=== PATIENT | female | born 1940 | race Caucasian/White ===

== ENCOUNTER 2024-03-10 01:45 | Emergency (ER) | payer MEDICARE, OTHER, SELFPAY ==
[2024-03-10] VITALS (11 sets, daily range): BP systolic 86–110; BP diastolic 46–71; BMI 24.5
[2024-03-10 02:57] LABS: % Basophils 0.3 % (0-2); % Eosinophils 0.6 % (0-6); % Immature Granulocytes 0.3 % (0-0.5); % Lymphocytes 18.1 % (20.5-51.1); % Neutrophils 73.7 % (42.2-75.2); Absolute Lymphocytes 1.3 10^3/uL (1.2-3.4); Absolute Monocytes 0.5 10^3/uL (0.1-0.6); Absolute Neutrophils 5.3 10^3/uL (1.4-6.5); Hematocrit 32.5 % (37.0-47.0); Hemoglobin 10.7 g/dL (12.0-16.0); Mean Corp Hgb Conc. 32.9 g/dL (33.0-37.0); Mean Corpuscular Volume 88.1 fL (81.0-99.0); Mean Platelet Volume 11.9 fL (7.4-10.4); Nucleated Red Blood Cells % 0 %; Platelet Count 124 10^3/uL (130-400); Red Blood Cell Count 3.69 10^6/uL (4.20-5.40); Red Cell Dist. Width 15.8 % (11.5-14.5); White Blood Cell Count 7.2 10^3/uL (4.8-10.8)
[2024-03-10 03:04] LABS: Urine Albumin Negative (Neg - Trace); Urine Bilirubin 1+ (Negative); Urine Character Slightly Cloudy (Clear); Urine Color Yellow; Urine Glucose Negative (Negative); Urine Ketone Trace (Negative); Urine Leukocyte Trace (Negative); Urine Nitrite Positive (Negative); Urine Occult Blood Trace (Negative); Urine Specific Gravity 1.015 (<1.030); Urine Urobilinogen 2+ (Neg - 1+)
[2024-03-10 03:15] LABS: ALT (SGPT) < 10 U/L (0-35); AST (SGOT) 16 U/L (14-36); Albumin 3.1 g/dl (3.5-5.0); Alkaline Phosphatase 93 U/L (38-126); Blood Urea Nitrogen 18 mg/dl (7-17); Calcium 8.9 mg/dl (8.4-10.2); Carbon Dioxide 26 mmol/L (22-30); Chloride 104 mmol/L (98-107); Estimated Creatinine Clearance 42 ml/min; Glucose 77 mg/dl (70-99); Potassium 3.5 mmol/L (3.5-5.1); Sodium 138 mmol/L (135-145); Total Bilirubin 0.7 mg/dl (0.2-1.3); eGFR > 60.00
[2024-03-10 03:17] LABS: Urine Red Blood Cell 0-2 /HPF (0-2); Urine Squamous Cell 0-2 /LPF (Few)
[2024-03-10 03:18] LABS: Urine Bacteria Many (Negative)
--- NOTE | 2024-03-10 04:02 | ED.GENMED ---
History of Present Illness
<CRISTIANO Mixon - Last Filed: 03/10/24 04:39>
General
Chief Complaint: Weakness
Source: patient, records and spouse
Time Seen by Provider: 03/10/24 03:30
Travel History
Have you had any contact with someone who has COVID-19?: No
Do you have any symptoms of coronavirus? Fever > 100 degrees, chills, cough, shortness of breath, sore throat, loss of taste or smell, muscle aches, or headache?: No
History of Present Illness
History of Present Illness:
83 year old female with hx of obesity and DM2 BIBA after pt fell on the floor from the cough and pt was found to be hypotensive just prior to arrival. Initially, EMS responded to a lift assist because pt fell from the couch. When they arrive, they
found pt on the floor and pt was too weak to stand. Denies head injury or LOC. BP on scene was 80/50. Pt refused to be transported however, EMS convinced pt to come to the ER. Pt complains of fatigue that began when she fell from the couch. She
reports she has been feeling fine prior. She does admit to two other falls earlier today. States she slipped and fell. Additionally, pt states she has not had a BM in 30 days. States she has been trying Miralax with no BM. She has associated nausea
and vomiting and occasional chills. She has been having intermittent vomiting. Denies hematemesis, abdominal pain, fevers, dysuria, hematuria, chest pain, SOB. is present.
Past History
<CRISTIANO Mixon - Last Filed: 03/10/24 04:39>
Past History
ED Past Medical History: NIDDM and Other (Chronic back pain)
ED Past Surgical History: Cholecystectomy and Gynecological ([facility] )
Social History
Tobacco: Non-smoker
Alcohol: None
Personal:
Living: with family
Review of Systems
<CRISTIANO Mixon - Last Filed: 03/10/24 04:39>
Review of Systems
Allergies reviewed?: Yes
All Other Systems: ROS reviewed and negative except as documented in HPI and ROS
Constitutional: Reports fatigue
EENT: Reports no symptoms
Respiratory: Reports no symptoms
Cardiac: Reports no symptoms
ABD/GI: Reports nausea, vomiting and constipated
: Reports no symptoms
Musculoskeletal: Reports no symptoms
Skin: Reports no symptoms
Neurological: Reports no symptoms
Endocrine: Reports no symptoms
Hematologic/Lymphatic: Reports no symptoms
Psychiatric: Reports no symptoms
Phy Exam
<CRISTIANO Mixon - Last Filed: 03/10/24 04:39>
General Physical Exam
General Presentation: other (appears toxic, weak appearing, unable to keep eyes open)
General age: appears stated age
General Skin: warm, dry and other (pale)
General Habitus: elderly and frail
Cardiovascular Exam
Cardiovascular Exam: regular rate/rhythm, no edema, no gallop and no murmur
Pulmonary Exam
Pulmonary Exam: lungs clear, no respiratory distress, no rales, no crackles, no rhonchi, no wheezing and no cough
Gastrointestinal Exam
Gastrointestinal Exam: soft, no pulsatile mass and non distended
Palpation: left upper quadrant: Mild tenderness and right upper quadrant: Mild tenderness
Neurological Exam
Neurological Exam: alert, oriented x3 and other (somnolent, unable to keep eyes open, speaking in full sentences)
Skin Exam
Skin Exam: normal color and warm/dry
Psychiatric Exam
Psychiatric Exam: normal mood/affect
Course
<CRISTIANO Mixon - Last Filed: 03/10/24 04:39>
Orders/Labs/Results
Orders:
Orders
03/10/24 02:06
Complete Blood Count/With Diff Urgent
Comprehensive Metabolic Panel Urgent
03/10/24 02:09
Urinalysis Reflex To Culture Urgent
Date Specimen was Collected: 03/10/24
Time Specimen was Collected: 02:07
Urine Microscopic Reflex Cult Urgent
Urine Culture Urgent
K[facility]ER[facility] Source: U
Specimen Description:
Date Specimen was Collected: 03/10/24
Time Specimen was Collected: 02:07
03/10/24 03:53
CR Abdomen - 1 View Urgent
Comment:
Reason For Exam: abd pain
03/10/24 04:20
Fosfomycin [Monurol] 3 gm PO ONCE ONE
03/10/24 04:22
Ambulate Patient-Treatment ONCE
Abnormal Lab Results
03/10/24 03/10/24
02:06 02:09
RBC 3.69 L 10^6/uL
(4.20-5.40)
Hgb 10.7 L g/dL
(12.0-16.0)
Hct 32.5 L %
(37.0-47.0)
MCHC 32.9 L g/dL
(33.0-37.0)
RDW 15.8 H %
(11.5-14.5)
Plt Count 124 L 10^3/uL
(130-400)
MPV 11.9 H fL
(7.4-10.4)
Lymphocytes % 18.1 L %
(20.5-51.1)
BUN 18 H mg/dl
(7-17)
Total Protein 6.0 L g/dl
(6.3-8.2)
Albumin 3.1 L g/dl
(3.5-5.0)
Urine Ketones Trace A
(Negative)
Ur Occult Blood Reflex Trace A
(Negative)
Urine Nitrite (Reflex) Positive A
(Negative)
Urine Bilirubin 1+ A
(Negative)
Urine Urobilinogen 2+ A
(Neg - 1+)
Leukocyte Esterase Rfl Trace A
(Negative)
Urine WBC (Reflex) 11-15 A /HPF
(0-5)
Urine Bacteria (Reflex) Many A
(Negative)
03/10/24 02:06
03/10/24 02:06
Vital Signs
Initial and Last Documented VS:
Initial Vital Signs
BP
104/60
03/10/24 01:47
Last Documented Vital Signs
Temp Pulse Resp BP Pulse Ox
97.0 F 62 18 110/71 94
03/10/24 01:49 03/10/24 05:52 03/10/24 05:52 03/10/24 06:07 03/10/24 05:52
<Maximo Zuniga, DO - Last Filed: 03/10/24 06:47>
Orders/Labs/Results
Orders:
Orders
03/10/24 02:06
Complete Blood Count/With Diff Urgent
Comprehensive Metabolic Panel Urgent
03/10/24 02:09
Urinalysis Reflex To Culture Urgent
Date Specimen was Collected: 03/10/24
Time Specimen was Collected: 02:07
Urine Microscopic Reflex Cult Urgent
Urine Culture Urgent
K[facility]ER[facility] Source: U
Specimen Description:
Date Specimen was Collected: 03/10/24
Time Specimen was Collected: 02:07
03/10/24 03:53
CR Abdomen - 1 View Urgent
Comment:
Reason For Exam: abd pain
03/10/24 04:20
Fosfomycin [Monurol] 3 gm PO ONCE ONE
03/10/24 04:22
Ambulate Patient-Treatment ONCE
Abnormal Lab Results
05/31/24 05/31/24
02:06 02:09
RBC 3.69 L 10^6/uL
(4.20-5.40)
Hgb 10.7 L g/dL
(12.0-16.0)
Hct 32.5 L %
(37.0-47.0)
MCHC 32.9 L g/dL
(33.0-37.0)
RDW 15.8 H %
(11.5-14.5)
Plt Count 124 L 10^3/uL
(130-400)
MPV 11.9 H fL
(7.4-10.4)
Lymphocytes % 18.1 L %
(20.5-51.1)
BUN 18 H mg/dl
(7-17)
Total Protein 6.0 L g/dl
(6.3-8.2)
Albumin 3.1 L g/dl
(3.5-5.0)
Urine Ketones Trace A
(Negative)
Ur Occult Blood Reflex Trace A
(Negative)
Urine Nitrite (Reflex) Positive A
(Negative)
Urine Bilirubin 1+ A
(Negative)
Urine Urobilinogen 2+ A
(Neg - 1+)
Leukocyte Esterase Rfl Trace A
(Negative)
Urine WBC (Reflex) 11-15 A /HPF
(0-5)
Urine Bacteria (Reflex) Many A
(Negative)
03/10/24 02:06
03/10/24 02:06
Vital Signs
Initial and Last Documented VS:
Initial Vital Signs
BP
104/60
03/10/24 01:47
Last Documented Vital Signs
Temp Pulse Resp BP Pulse Ox
97.0 F 62 18 110/71 94
03/10/24 01:49 03/10/24 05:52 03/10/24 05:52 03/10/24 06:07 03/10/24 05:52
<CRISTIANO Mixon - Last Filed: 03/10/24 04:39>
MDM/Problems Addressed
Differential Diagnosis Includes:
constipation, UTI
MDM/Problems Addressed:
83 year old female BIBA from home after fall and hypotension.
Chronic conditions affecting care: DM
<CRISTIANO Mixon - Last Filed: 03/10/24 04:39>
*Critical Care Note
Total Time (30-74mins, 75-104mins- exclusive of procedures): Not Applicable
ED Attending Note
<CRISTIANO Mixon - Last Filed: 03/10/24 04:39>
-
Portions of this chart may have been created with voice recognition software.� Occasional wrong word or��sound alike� substitutions may have occurred due to the inherent limitations of voice recognition software.
<Maximo Zuniga, - Last Filed: 03/10/24 06:47>
ED Attending Note
Patient seen and examined by attending physician: Yes
I performed the substantive portion of visit, reviewed & personally made and approve the management plan that is documented in note by myself or RIKKI.: Yes
ED Attending Note:
Pleasant 83-year-old female presents with weakness. According to patient, patient slid out of bed. She did not injure herself. According to EMS, they visit her once or twice a week for the same complaint. They took her blood pressure and she was
hypotensive. She did not want to come to the hospital. Medics convinced her to come in upon arrival, she stated she had no complaints. Patient denies fever, chills, nausea or vomiting. She reports no chest pain or shortness of breath. She
states that she frequently does get weak. Denies any urinary symptoms. Patient was seen in conjunction with the PA student. I have reviewed and agree with the history and treatment plan presented. On my independent physical exam, patient is
awake, alert, and oriented x3, no acute distress. Heart is regular rate and rhythm. Lungs are clear to auscultation bilaterally without wheezes rales or rhonchi present. Abdomen soft nontender no suprapubic tenderness. Negative Gracia sign.
Negative Raymond's point tenderness.
Discharge Plan
Departure
Patient Disposition: Home (Routine Discharge)
Date of Disposition: 03/10/24
Time of Disposition: 05:45
Patient with high blood pressure during this ER visit?: No
Condition: Good
Discharge Problem:
Acute UTI, Weakness
Instructions: Generalized Weakness (DC), BLOOD PRESSURE
Prescriptions:
No Action
venlafaxine 75 mg Tablet
75 mg PO DAILY
venlafaxine 75 mg Tablet
150 mg PO HS
clonazepam 1 mg Tablet
1 mg PO DAILY
clonazepam 1 mg Tablet
2 mg PO HS
amitriptyline 50 mg Tablet
50 mg PO HS
perphenazine 4 mg Tablet
4 mg PO HS
sulfamethoxazole-trimethoprim [Bactrim DS] 800-160 mg tablet
1 tab PO Q12H Qty: 4 0RF
sucralfate 100 mg/mL Suspension
1 g PO Q6 Qty: 1000 1RF
ferrous sulfate 325 mg (65 mg iron) tablet
325 mg PO Q OTHER DAY Qty: 14 1RF
polyethylene glycol 3350 [HealthyLax] 17 gram Powder In Packet
17 g PO BID Qty: 100 0RF
pantoprazole 40 mg Tablet,Delayed Release (Dr/Ec)
40 mg PO BID Qty: 60 1RF
Referrals:
UNKNOWN - PT DOES,NOT KNOW [Family Provider] -
Interventions
Interventions:
*Risk Screen - Suicide Last Done: 03/10/24 01:49
*General Assessment Last Done: 03/10/24 01:49
*Neglect/Abuse Screening Last Done: 03/10/24 01:49
ED- Cardiac Assessment Last Done: 03/10/24 02:39
ED- Neurological Assessment Last Done: 03/10/24 02:39
ED- Pulmonary Assessment Last Done: 03/10/24 02:39
Discharge Date and Time
Print Language: GREENLANDIC
[2024-03-10] MEDS: MONUROL 3 GM PO (04:43)
== END 2024-03-10 06:59 | disposition home or self-care (01) ==
LOC: EMR 01:45
PROVIDERS: EMERGENCY PHYSICIAN Student in an Organized Health Care Education/Training Program
DX: N39.0 Urinary tract infection, site not specified (principal); R53.1 Weakness; W08.XXXA Fall from other furniture, initial encounter; E11.9 Type 2 diabetes mellitus without complications; E66.9 Obesity, unspecified; G89.29 Other chronic pain; Z90.49 Acquired absence of other specified parts of digestive tract
CPT/HCPCS: 99283; 74018; 80053; 81003; 81015; 85025; 87077; 87086; 87186

== ENCOUNTER 2024-04-09 03:00 | Inpatient (IN) | payer MEDICARE, SELFPAY ==
[2024-04-08 21:21] VITALS: BP 139/77
[2024-04-08 21:23] VITALS: BP 139/77
[2024-04-08 21:27] VITALS: BMI 20.9
[2024-04-08 21:47] LABS: % Basophils 0.6 % (0-2); % Eosinophils 0.8 % (0-6); % Immature Granulocytes 0.2 % (0-0.5); % Lymphocytes 18.9 % (20.5-51.1); % Monocytes 4.2 % (1.7-9.3); % Neutrophils 75.3 % (42.2-75.2); Absolute Basophils 0.1 10^3/uL (0-0.2); Absolute Eosinophils 0.1 10^3/uL (0-0.7); Absolute Lymphocytes 1.8 10^3/uL (1.2-3.4); Absolute Monocytes 0.4 10^3/uL (0.1-0.6); Hematocrit 38.5 % (37.0-47.0); Mean Corp Hgb Conc. 33.8 g/dL (33.0-37.0); Mean Corpuscular Hgb 30.2 pg (27.0-31.0); Mean Corpuscular Volume 89.3 fL (81.0-99.0); Nucleated Red Blood Cells % 0 %; Red Blood Cell Count 4.31 10^6/uL (4.20-5.40); Red Cell Dist. Width 17.2 % (11.5-14.5); White Blood Cell Count 9.3 10^3/uL (4.8-10.8)
[2024-04-08 22:00] VITALS: BP 120/88
[2024-04-08 22:03] LABS: Mean Platelet Volume 9.7 fL (7.4-10.4)
[2024-04-08 22:04] LABS: Platelet Count 330 10^3/uL (130-400)
[2024-04-08 22:27] LABS: ALT (SGPT) < 10 U/L (0-35); AST (SGOT) 22 U/L (14-36); Albumin 3.7 g/dl (3.5-5.0); Alkaline Phosphatase 97 U/L (38-126); Blood Urea Nitrogen 18 mg/dl (7-17); Calcium 10.1 mg/dl (8.4-10.2); Carbon Dioxide 22 mmol/L (22-30); Chloride 104 mmol/L (98-107); Estimated Creatinine Clearance 61 ml/min; Glucose 95 mg/dl (70-99); Lipase 61 U/L (23-300); Potassium 4.6 mmol/L (3.5-5.1); Sodium 136 mmol/L (135-145); Total Bilirubin 0.6 mg/dl (0.2-1.3); eGFR > 60.00
[2024-04-08] MEDS: REGLAN 10 MG IV (22:57)
[2024-04-08 23:00] VITALS: BP 126/67
--- NOTE | 2024-04-08 23:02 | ED.GENMED ---
History of Present Illness
General
Chief Complaint: Abdominal Pain
Source: patient, spouse, ambulance crew and previous hospital records (ED visit from 1 month ago with similar complaint as well as hospitalization 1 year ago for similar complaint)
Exam Limitations: none
Time Seen by Provider: 04/08/24 22:48
Nursing documentation reviewed up to this point in time: agreed with
History of Present Illness
History of Present Illness:
This is an 83-year-old woman with history of diabetes, remote history of Adalid-en-Y gastric bypass who resides at home with her . She has history of gastritis intermittent nausea and vomiting who presents with upper abdominal pain,
intermittent nausea and vomiting that began 2 days ago after she suffered a mechanical fall. She denies head injury nor loss of consciousness, denies dizziness nor lightheadedness. She denies hematemesis.
She does admit to frequent falls, uses a cane as well as walker at home.
According to EMS, there called for assistance after fall on a frequent basis.
ED visit 1 month ago for similar complaints of upper abdominal pain, nausea and vomiting, unremarkable ED evaluation save for note of UTI, treated with a one-time dose of Monurol. She had no UTI symptoms at that time.
She was hospitalized 1 year ago for similar complaints of upper abdominal pain, nausea and vomiting was found to have heme positive brown stools, anemia requiring 3 units of packed red blood cells. CAT scan showed gastritis and upper endoscopy
showed ulceration at the gastro duodenal anastomosis site and mild stenosis. She was recommended to continue Protonix and Carafate.
She was also noted to have incidental bilateral small adrenal masses for which outpatient workup was recommended.
At this point it is unclear if she has continued Protonix and Carafate.
Patient does admit that upper abdominal pain is much worse with eating and drinking causing her to become nauseated and vomit. She admits to limited oral intake and according to our records has lost 11 kg since last month.
She also has history of chronic constipation and reports last bowel movement was perhaps a week or 2 ago. She denies black or tarry stools. No fevers or chills.
She admits to occasional low back pain, unchanged. No radiation of the pain, no weakness nor numbness.
She denies dysuria and urgency but does admit to somewhat chronic urinary frequency. No flank pain.
Past History
Past History
ED Past Medical History: NIDDM and Other (Chronic back pain)
ED Past Surgical History: Cholecystectomy and Gynecological ([facility] )
Social History
Tobacco: Non-smoker
Alcohol: None
Personal:
Living: with family
Phy Exam
Physical Exam
Physical Exam:
GENERAL: 83-year-old woman appears her stated age, mildly frail in appearance, awake and alert, pleasant, appears in no acute distress. is accompanying.
EYE: anicteric
NECK: Supple, nontender, no meningismus, no significant adenopathy.
ENT: oral mucosa is moist. No rhinorrhea.
CARDIAC: Regular rate and rhythm. no murmur.
LUNGS: Clear breath sounds bilaterally, no acute respiratory distress, no wheezes/rales/rhonchi
ABDOMEN: Soft, nondistended, mild generalized upper abdominal tenderness with deep palpation only, no r/g, no cvat. normoactive BS.
BACK: Patient sits up with ease and without assistance. No midline bony tenderness. Moderate thoracic kyphosis is noted.
NEUROLOGICAL: Alert and oriented x3, no focal neuro deficits. Motor strength is 5/5 bilaterally. Gross sensation is intact.
SKIN: Warm and dry, normal color, skin intact. No rash.
MUSCULOSKELETAL: No C/C/E. peripheral pulses are full and equal b/l. No palpable tenderness.
PSYCH: Normal and appropriate interaction.
Course
Orders/Labs/Results
Orders:
Orders
04/08/24 21:30
Electrocardiogram (*1) Urgent
Reason for Study: Abdominal Pain
EKG- Treatment ONCE
04/08/24 21:38
Complete Blood Count/With Diff Urgent
Comprehensive Metabolic Panel Urgent
Lipase Urgent
04/08/24 22:44
EKG [Electrocardiogram (*1)] Urgent
Reason for Study: Chest Pain
EKG- Treatment ONCE
04/08/24 22:50
Ondansetron Injectable [Zofran] 4 mg .ROUTE .STK-MED ONE
04/08/24 22:55
Metoclopramide [Reglan] 10 mg IV NOW STA
04/08/24 22:56
Metoclopramide [Reglan] 10 mg .ROUTE .STK-MED ONE
04/08/24 23:01
Pantoprazole [Protonix IV] 40 mg IV NOW STA
04/08/24 23:19
Troponin I Urgent
Urinalysis Reflex To Culture Urgent
Date Specimen was Collected: 04/08/24
Time Specimen was Collected: 23:03
Urine Microscopic Reflex Cult Urgent
Urine Culture Urgent
[facility] Source: U
Specimen Description:
Date Specimen was Collected: 04/08/24
Time Specimen was Collected: 23:03
04/09/24 00:00
CT Abd/pelvis W Iv Cont Urgent
Reason For Exam: gen upper abd pain with N/V
04/09/24 01:57
Admit/Transfer Patient As Directed
Co-Sign Provider:
Level of Care: Inpatient admission
Assign to:: Telemetry
Physician / Group: Huber
Diagnosis: Gastritis / Gastric Ulcer
Reason for Telemetry: Chest Pain syndromes
Date to Stop Telemetry: 04/11/24
Time to Stop Telemetry: 11:00
Reason for Hospitalization: Gastritis / Gastric Ulcer
Expected length of stay greater than two midnights?: Yes
ELOS- Estimated Length of Stay in days: 2
I certify the patient meets the requirements for IP care: Yes
04/09/24 01:59
Code Status As Directed
Resuscitation Status: Full Code
04/09/24 03:09
0.9% Sodium Chloride 1000 ml [Nss] 1,000 ml IV 80 mls/hr
Acetaminophen [Tylenol] 650 mg PO Q4HPRN PRN
Clonazepam [Klonopin] 0.5 mg PO Q6HPRN PRN
HYDROmorphone [Dilaudid] 0.5 mg IV Q4HPRN PRN
04/09/24 03:09
Consult Notification Routine
Specialty to Notify: Gastroenterology
GASTROINTESTINAL CONSULT Routine
Consulting Provider: Arjun Dsouza
Was physician already notified: No
Reason for consult: Gastritis / Gastric Ulcer
TSH Reflex To Free T4 Routine
Activity As Directed
Activity Level: Ambulate
With Assistance
I/O [Intake/ Output] As Directed
Frequency: Per unit guidelines
Pneumatic Compression Sleeves As Directed
Type: Knee high
Vital Signs As Directed
Frequency: Per unit guidelines
Oxygen Therapy [O2 Therapy] [RESP] Routine
Titrate/Wean O2 to maintain O2 sat greater than (%): 94
DX Deep Vein Thrombosis Video Routine
04/09/24 Breakfast
NPO
Allow oral meds: Yes
Allow clear liquids: Sips of Clears
Basic Metabolic Panel IN AM
Complete Blood Count/No Diff IN AM
04/09/24 07:30
Sucralfate Suspension [Carafate Suspension] 1 gm PO ACHS
04/09/24 08:00
Docusate Sodium [Colace] 100 mg PO BID
Pantoprazole [Protonix IV] 40 mg IV BID
Polyethylene Glycol Powder [Miralax] 17 grams PO BID
Venlafaxine [Effexor] 75 mg PO DAILY
04/09/24 22:00
Amitriptyline [Elavil] 50 mg PO HS
Venlafaxine [Effexor] 150 mg PO HS
04/11/24 11:00
DC Protocol for Telemetry ONCE
Abnormal Lab Results
04/08/24 04/08/24
21:38 23:19
RDW 17.2 H %
(11.5-14.5)
Absolute Neuts (auto) 7.0 H 10^3/uL
(1.4-6.5)
Neutrophils % 75.3 H %
(42.2-75.2)
Lymphocytes % 18.9 L %
(20.5-51.1)
BUN 18 H mg/dl
(7-17)
Urine Ketones 2+ A
(Negative)
Urine Nitrite (Reflex) Positive A
(Negative)
Urine Bilirubin 1+ A
(Negative)
Urine Urobilinogen 2+ A
(Neg - 1+)
Leukocyte Esterase Rfl Trace A
(Negative)
Urine Bacteria (Reflex) Many A
(Negative)
04/08/24 21:38
04/08/24 21:38
Vital Signs
Initial and Last Documented VS:
Initial Vital Signs
Temp Pulse Resp BP Pulse Ox
97.6 F 77 20 139/77 97
04/08/24 21:21 04/08/24 21:21 04/08/24 21:21 04/08/24 21:21 04/08/24 21:21
Last Documented Vital Signs
Temp Pulse Resp BP Pulse Ox
99 F 79 15 142/80 99
04/09/24 03:11 04/09/24 03:11 04/09/24 03:11 04/09/24 03:11 04/09/24 03:11
MDM/Problems Addressed
Differential Diagnosis Includes:
Concern for recurrent gastritis/gastric ulcer, gastric outlet obstruction, GI bleed, dehydration/acute kidney injury. Concern for recurrent UTI versus asymptomatic bacteriuria.
No traumatic findings on exam.
Overall appears euvolemic. Minimal tenderness upper abdomen with deep palpation only.
Labs thus far unremarkable, within normal limits.
EKG stable and unchanged from previous.
Given IV dose of Protonix and with return of nausea will trial an IV dose of Reglan.
If abdominal pain/nausea and vomiting persist will plan for CT abdomen pelvis.
*Radiology
Radiology exam reviewed: radiology read reviewed
*Pulse Oximetry
Patient hypoxic: no
*EKG
Interpreted by ED Provider?: Yes
Comparison EKG: no changes (Unchanged from previous April 01, 2023)
Rate: normal
Rhythm: sinus
[place]: normal axis
Interval: normal interval
QRS Pattern: normal QRS
Ischemia: no ischemia
*Ese Teacher Interpretation
Rate: normal
Interpretation: normal
Rhythm: sinus
*Critical Care Note
Total Time (30-74mins, 75-104mins- exclusive of procedures): Not Applicable
Update Note
Update Note:
04/09/2024 01:30 AM
CAT scan shows significant/increased inflammatory changes at the gastrojejunal anastomotic site concerning for markedly inflamed anastomotic ulcer. There is moderate surrounding inflammatory fat stranding without discrete abscess nor free air.
There is also associated moderate wall thickening of the gastric pouch and bypassed stomach consistent with significant gastritis.
I suspect this severe gastritis/ulcer is cause for patient's poor oral intake with recent loss of 11 kg over the past 1 month.
IV Protonix initiated and will admit to hospital service for continued pain control, IV hydration.
ED Attending Note
-
Portions of this chart may have been created with voice recognition software.� Occasional wrong word or��sound alike� substitutions may have occurred due to the inherent limitations of voice recognition software.
Discharge Plan
Departure
Patient Disposition: Admit
Date of Disposition: 04/09/24
Time of Disposition: 01:32
Admit to: Med/Surg
Admit to doctor: Huber
Presentation/result/management discussed w/ accepting MD/DO: Hospitalist
Discharge Problem:
Acute on chronic gastritis, Gastric ulcer, Intractable vomiting with nausea
Interventions
Interventions:
*Risk Screen - Suicide Last Done: 04/08/24 21:21
*General Assessment Last Done: 04/08/24 21:21
*Neglect/Abuse Screening Last Done: 04/08/24 21:21
ED- Fall Risk Assessment Last Done: 04/08/24 21:27
*Nursing Disposition Last Done: 04/09/24 03:25
ZH-[id number]-Oplglokseh Assessment Last Done: 04/08/24 21:27
Discharge Date and Time
Discharge Date/Time: 04/09/24 03:25
[2024-04-08] MEDS: PROTONIX IV 40 MG IV (23:06)
[2024-04-08 23:36] LABS: Urine Albumin Negative (Neg - Trace); Urine Bilirubin 1+ (Negative); Urine Color Yellow; Urine Glucose Negative (Negative); Urine Ketone 2+ (Negative); Urine Leukocyte Trace (Negative); Urine Nitrite Positive (Negative); Urine Occult Blood Negative (Negative); Urine Specific Gravity 1.015 (<1.030); Urine Urobilinogen 2+ (Neg - 1+); Urine pH 6.5 (5.0-9.0)
[2024-04-08 23:39] LABS: Urine Character Cloudy (Clear)
[2024-04-08 23:45] LABS: Urine Bacteria Many (Negative); Urine Mucus Many; Urine Squamous Cell >30 /LPF (Few)
[2024-04-08 23:55] LABS: Troponin I < 0.012 ng/ml
[2024-04-09] VITALS (7 sets, daily range): BP systolic 99–142; BP diastolic 51–80; BMI 21.5
--- NOTE | 2024-04-09 02:07 | HPS.HSE ---
Family Physician
-
Family Physician: INTERVIEWE UNKNOWN - PT NOT
Chief Complaint
-
Abd Pain
History of Present Illness
Patient is an 83y F with PMH significant for GERD / gastritis and prior bariatric surgery who presents to ED complaining of abdominal pain x 2-3 days. Patient states that she fell at home 3 days ago. She notes that she fell forward and struck
her abdomen on a countertop and then fell backward onto the floor. She denies any head injury or LOC. Patient states that she started with abdominal pain the following day. Patient was admitted here one year ago with similar symptoms (and similar
history including reported fall / trauma). She was treated with PPI and Carafate at that time. EGD was done which revealed an ulceration at G-J anastomosis site.
Patient states that her current med list is 'in the computer'; however, when specifically asked about Protonix or Carafate she notes that she no longer takes these medications.
The best I can tell, she completed the initial prescriptions of both in March 2023 and has taken neither since that time.
Medical History
Past Medical History
Past Medical History: Reports Other
Additional Past Medical History:
Morbid Obesity
DM-II, Diet-Controlled with Reactive Hypoglycemia
Agoraphobia
Past Surgical History: Reports Other
Additional Past Surgical History:
Gastric Bypass
R TKA
Cholecystectomy
Ectopic
Social History
Tobacco: Former Smoker (Quit smoking 30y ago. Approx 20 pack years total use.)
Alcohol: None
Drug: None
Personal:
Living: With Family
Family History
Family History: CAD and Diabetes
Allergies / Home Medications
Allergies reflects when Allergies were last updated in [employer] 2000.
Home Medications with original date entered in [employer] [facility] 2000
Allergy/Medication List:
Allergies
Allergy/AdvReac Type Severity Reaction Status Date / Time
codeine Allergy Unknown Verified 06/29/24 21:31
meperidine [From Demerol] Allergy Unknown Verified 04/08/24 21:31
Home Medications
amitriptyline 50 mg tablet 50 mg PO HS Mental Health/Anxiety 04/01/23
clonazepam 1 mg tablet 1 mg PO DAILY Mental Health/Anxiety 04/01/23
clonazepam 1 mg tablet 2 mg PO HS Mental Health/Anxiety 04/01/23
perphenazine 4 mg tablet 4 mg PO HS Mental Health/Anxiety 04/01/23
venlafaxine 75 mg tablet 75 mg PO DAILY Mental Health/Anxiety 04/01/23
venlafaxine 75 mg tablet 150 mg PO HS Mental Health/Anxiety 04/01/23
ferrous sulfate 325 mg (65 mg iron) tablet 325 mg PO Q OTHER DAY #14 tabs 04/05/23
pantoprazole 40 mg tablet,delayed release 40 mg PO BID #60 tabs 04/05/23
polyethylene glycol 3350 17 gram oral powder packet (HealthyLax) 17 g PO BID PRN as needed 04/08/24
Question the accuracy of this confirmed med list as patient states it is correct but then denies taking pantoprazole.
Review of Systems
-
History Source: Patient
A 12 point ROS was completed and negative except as noted: Yes
Constitutional: Denies Fever or Chills
Respiratory: Denies Cough or Trouble Breathing
Cardiac: Denies Chest Pain or Palpitations
Abdomen/GI: Reports Abdominal Pain, Nausea, Vomiting and Constipated; Denies Diarrhea, Bloody Stools or Black Stools
: Denies Dysuria or Frequency
Neurological: Denies Dizzy or Headache
Psych: Denies Depression or Anxiety
Physical Exam
Vital Signs
Vital Signs
Temp Pulse Resp BP Pulse Ox
97.6 F 92 25 132/80 99
04/08/24 21:21 04/09/24 01:15 04/09/24 00:15 04/09/24 00:00 04/09/24 00:00
Physical Exam
General: Other (83y F in mild distress due to abdominal pain.)
HEENT: PERRLA and Other (Dry MM, missing dentition, neck suple.)
Respiratory: Clear; No Wheezes, Rales or Rhonchi
Cardiac: S1/S2, Regular Rhythm and Murmur (II/ RIKI)
GI: Soft, Non Distended, Normal Bowel Sounds and Other (Pos tenderness in epigastrum / RUQ areas.)
Musculoskeletal: No Clubbing, No Cyanosis and No Edema
Neuro: AO x 3
Laboratory Results
-
04/08/24 21:38
04/08/24 21:38
Laboratory Results
Total Bilirubin 0.6 mg/dl (0.2-1.3) 04/08/24 21:38
AST 22 U/L (14-36) 04/08/24 21:38
ALT < 10 U/L (0-35) 04/08/24 21:38
Alkaline Phosphatase 97 U/L (38-126) 04/08/24 21:38
Troponin I < 0.012 ng/ml 04/08/24 23:19
Lipase 61 U/L (23-300) 04/08/24 21:38
Impression/Plan
-
A/P: Patient is an 83y F with PMH significant for obesity and GERD / gastric ulcer who presents to ED complaining of abdominal pain x 2 days.
Acute Gastritis
History of G-J Anastomosis Ulceration
- Admit for further evaluation and treatment.
- Evidence for gastritis noted on CT scan - similar to prior admission of one year ago.
- Seems that patient is no longer on PPI therapy or Carafate.
- IV PPI BID. Restart Carafate QID.
- NPO, IVF support.
- GI evaluation / consider endoscopic examination.
- Follow for clinical improvement with transfusion.
Chronic Constipation
- Patient reports no BM in the past 5 days.
- Stool-filled colon appreciated on CT.
- Miralax BID for now and follow for results.
Abnormal UA
- Patient with abnormal UA, but no current UTI symptoms.
- UA appears most consistent with contamination given > 30 squamous cells.
- Observe off of abx for now.
- Monitor for any new symptoms.
- Follow-up culture data.
Agoraphobia
- Stable. Continue venlafaxine, amitriptyline.
- Change clonazepam to PRN dosing.
Weight Loss
- Patient has lost 27kg over the past year.
- Seems an excessive amount of weight loss.
- Check TFTs.
- Consider further imaging / evaluation for underlying malignancy.
DVT Prophylaxis: SCDs
Code Status: Full
[2024-04-09] MEDS: NSS 1000 IV ×2 (03:15→16:25)
--- NOTE | 2024-04-09 03:48 | PTCARENOTE ---
Received pt from ED via stretcher. Pt stated she felt too weak to ambulate to bed - pulled over instead. AAOx2 (disoriented to year), VSS, no complaints of pain at this time. Oriented pt to floor, call steiner within reach.
[2024-04-09 06:39] LABS: Hematocrit 34.3 % (37.0-47.0); Hemoglobin 11.1 g/dL (12.0-16.0); Mean Corp Hgb Conc. 32.4 g/dL (33.0-37.0); Mean Corpuscular Volume 92.7 fL (81.0-99.0); Mean Platelet Volume 10.2 fL (7.4-10.4); Platelet Count 309 10^3/uL (130-400); White Blood Cell Count 8.3 10^3/uL (4.8-10.8)
[2024-04-09 07:03] LABS: Blood Urea Nitrogen 14 mg/dl (7-17); Calcium 9.5 mg/dl (8.4-10.2); Carbon Dioxide 25 mmol/L (22-30); Chloride 104 mmol/L (98-107); Estimated Creatinine Clearance 61 ml/min; Glucose 81 mg/dl (70-99); Potassium 3.8 mmol/L (3.5-5.1); Sodium 137 mmol/L (135-145); eGFR > 60.00
[2024-04-09] MEDS: CARAFATE SUSPENSION 1 GM PO ×4 (07:58→23:32)
[2024-04-09] MEDS: MIRALAX 17 GRAMS PO ×2 (08:00→19:29)
[2024-04-09] MEDS: COLACE 100 MG PO ×2 (08:03→19:29)
[2024-04-09] MEDS: EFFEXOR 75 MG PO (08:03)
[2024-04-09] MEDS: PROTONIX IV 40 MG IV ×2 (08:06→19:37)
[2024-04-09] MEDS: NSS (PRESERVATIVE FREE) 10 ML IV ×2 (08:07→19:36)
--- NOTE | 2024-04-09 10:15 | CM ---
Patient seen bedside, patient reports she told staff she did not want a case monitor. CM reports she would like to confirm a few assessment questions if patient is agreeable. Patient confirms she is agreeable. Patient reports she lives with her
in a one story condo, one step to enter. Patient denies VN or SNF, reports she has an aid three times a week. Patient reports she has a cane at home if needed. Patient confirms PCP Dr. Condon, pharmacy [facility] in [place]. CM will
continue to follow for all discharge planning needs.
Plan; home with family/aid, watch for VN needs.
[2024-04-09] MEDS: DILAUDID 0.5 MG IV (11:11)
--- NOTE | 2024-04-09 12:35 | CON.GI ---
Consultation
-
Date/Time Consultation Requested: 04/09/2024
Date/Time Consultation Performed: 04/09/2024
Performing Provider: Arjun Dsouza
Reason for Consultation: abdominal pain, vomiting
Medical History
Chief Complaint / HPI
Chief Complaint: abdominal pain, vomiting
History of Present Illness:
The patient is a 83 year old female with h/o obesity s/p RYGB years ago, DM, agoraphobia, and marginal ulcer who p/w abdominal pain. Patient fell few days ago and started having abdominal pain. She had similar presentation about a year ago and was
admitted on 03/2023, eventually had EGD which showed marginal ulcer. She was started on PPI twice daily with Carafate and she reports her abdominal pain has improved afterwards. Denies NSAID use. She denies melena, blood in her stool. However she
does admit to postprandial vomiting which is worse with solid foods.
Past Medical History
Past Medical History: NIDDM and Other
Past Surgical History: Other
Social History
Tobacco: Former Smoker
Alcohol: None
Allergies / Home Medications
Allergy/AdvReac Type Severity Reaction Status Date / Time
codeine Allergy Unknown Verified 04/08/24 21:31
meperidine [From Demerol] Allergy Unknown Verified 04/08/24 21:31
�Medication �Instructions �Recorded
amitriptyline 50 mg tablet 50 mg PO HS Mental Health/Anxiety 04/01/23
clonazepam 1 mg tablet 1 mg PO DAILY Mental Health/Anxiety 04/01/23
clonazepam 1 mg tablet 2 mg PO HS Mental Health/Anxiety 04/01/23
perphenazine 4 mg tablet 4 mg PO HS Mental Health/Anxiety 04/01/23
venlafaxine 75 mg tablet 75 mg PO DAILY Mental 04/01/23
Health/Anxiety
venlafaxine 75 mg tablet 150 mg PO HS Mental Health/Anxiety 04/01/23
ferrous sulfate 325 mg (65 mg 325 mg PO Q OTHER DAY #14 tabs 04/05/23
iron) tablet
pantoprazole 40 mg tablet,delayed 40 mg PO BID #60 tabs 04/05/23
release
polyethylene glycol 3350 17 gram 17 g PO BID PRN as needed 04/08/24
oral powder packet (HealthyLax)
Review of Systems
Vital Signs
Temp Pulse Resp BP Pulse Ox
97.6 F 88 18 99/51 95
04/09/24 11:25 04/09/24 11:25 04/09/24 11:25 04/09/24 11:25 04/09/24 11:25
Physical Exam
Exam
General: Well Developed and Well Nourished
HEENT: Normocephalic
Respiratory: Clear
Cardiac: S1/S2
GI: Soft, Non Distended, Normal Bowel Sounds and Tender
Results
WBC 8.3 10^3/uL (4.8-10.8) 04/09/24 05:58
Hgb 11.1 g/dL (12.0-16.0) L 04/09/24 05:58
Hct 34.3 % (37.0-47.0) L 04/09/24 05:58
MCV 92.7 fL (81.0-99.0) 04/09/24 05:58
Plt Count 309 10^3/uL (130-400) 04/09/24 05:58
Absolute Neuts (auto) 7.0 10^3/uL (1.4-6.5) H 04/08/24 21:38
Sodium 137 mmol/L (135-145) 04/09/24 05:57
Potassium 3.8 mmol/L (3.5-5.1) 04/09/24 05:57
Chloride 104 mmol/L (98-107) 04/09/24 05:57
Carbon Dioxide 25 mmol/L (22-30) 04/09/24 05:57
BUN 14 mg/dl (7-17) 04/09/24 05:57
Creatinine 0.6 mg/dL (0.6-1.0) 04/09/24 05:57
Calcium 9.5 mg/dl (8.4-10.2) 04/09/24 05:57
Total Bilirubin 0.6 mg/dl (0.2-1.3) 04/08/24 21:38
AST 22 U/L (14-36) 04/08/24 21:38
ALT < 10 U/L (0-35) 04/08/24 21:38
Alkaline Phosphatase 97 U/L (38-126) 04/08/24 21:38
Lipase 61 U/L (23-300) 04/08/24 21:38
Diagnostic Image Results:
Prior GI Procedures:
EGD: 04/02/2023
Impression: - Normal esophagus.
- Adalid-en-Y gastrojejunostomy with gastrojejunal
anastomosis characterized by ulceration and mild
stenosis. Biopsied.
- Normal examined jejunum.
Colonoscopy:
Assessment / Plan
-
83 year old female with h/o obesity s/p RYGB years ago, DM, agoraphobia, and marginal ulcer who p/w abdominal pain. Patient fell few days ago and started having abdominal pain. She had similar presentation about a year ago and was admitted on
03/2023, eventually had EGD which showed marginal ulcer.
Impression / Rec:
1. Abdominal pain - Patient has similar presentation on 03/2023 and EGD showed marginal ulcer with mild stenosis at GJ anastomosis. She was treated with PPI twice daily and Carafate which improved her symptoms in 2022. She remains on PPI once
daily. She denies NSAID use and smoking. She reports her symptoms are similar to her prior admission. Will plan for repeat EGD for reassessment.
2. Vomiting -her prior EGD showed ulcerations and mild stenosis at GJ anastomosis. Given her frequent postprandial vomiting which is worse with solid food, her stenosis may have worsened. Will evaluate with EGD with possible intervention with
dilation.
Total Time Spent with Patient (in minutes): 55
-
-
Thank you for consultation and allowing me to participate in the patient's care. Please call the real estate acquisition analyst GI physician during the after hours with any questions or concerns.
--- NOTE | 2024-04-09 13:21 | W.PN.HOSP.TC ---
Today's Communication/Plan
-
apprec GI
clears
IV PPI
will need repeat EGD
Assessment / Plan
Assessment / Plan
pt is an 83 year old female
Acute Gastritis--History of G-J Anastomosis Ulceration--apprec GI--cont clears--cont IV PPI BID--Evidence for gastritis noted on CT scan - similar to prior admission of one year ago--likely EGD
Chronic Constipation--Patient reports no BM in the past 5 days- Stool-filled colon appreciated on CT- Miralax BID for now and follow for results.
Abnormal UA- Patient with abnormal UA, but no current UTI symptoms- UA appears most consistent with contamination given > 30 squamous cells--await urine culture--agree with NO abx at this time
Agoraphobia - Stable. Continue venlafaxine, amitriptyline- Change clonazepam to PRN dosing.
Weight Loss- Patient has lost 27kg over the past year--TSH WNL--consider further workup
anemia--check usual studies
DVT Prophylaxis: SCDs
Code Status: Full
Anticipated Discharge: > 48 hours
Subjective/Interval History
-
Date of Service: April 09, 2024
pt feeling better after pain med given--taking clears
Objective Data
-
Labs:
Laboratory Results
04/09/24 04/09/24
05:57 05:58
WBC 8.3
Hgb 11.1 L
Hct 34.3 L
Plt Count 309
Sodium 137
Potassium 3.8
Chloride 104
Carbon Dioxide 25
BUN 14
Creatinine 0.6
Glucose 81
Calcium 9.5
Vital Signs:
max temp for 24 hours
04/09/24
03:11
Temp 99 F
Vital Signs
Temp Pulse Resp BP Pulse Ox
97.6 F 88 18 99/51 95
04/09/24 11:25 04/09/24 11:25 04/09/24 11:25 04/09/24 11:25 04/09/24 11:25
I&O
04/08/24 04/09/24 04/10/24
06:59 06:59 06:59
Intake Total 0 / 0
Balance 0 / 0
Review of Systems
-
All other systems: Reviewed and negative
Physical Exam
-
General: Well Developed, Well Nourished and No Apparent Distress
HEENT: Normocephalic and Atraumatic
Respiratory: Clear to Auscultation; Negative Wheezes or Rhonchi
Cardiac: Regular Rhythm, S1/S2 and Murmur
GI: Soft, Nontender, Nondistended and Normal Bowel Sounds
Musculoskeletal: No Clubbing, No Cyanosis and No Edema
Neuro: Awake and Alert
[2024-04-09] MEDS: KLONOPIN 0.5 MG PO (17:49)
--- NOTE | 2024-04-09 18:02 | PTCARENOTE ---
Pt rang call obdulia to question her Klonopin schedule. Pt informed that the medication is ordered Klonopin 0.5mg PRN Q6H. Education attempted. Pt refused a PRN administration and yelling to speak to a doctor that will prescribe her Klonopin 1mg PO now
and 2mg at night. Pt's also demanding that we get her what she asks for, or that he will give the patient medication from his bag. Pt informed that security would be called and he would be asked to leave if he were to attempt such a thing,
but the stated he did not have medications on him. Dr. Nur notified of pt request. New order for Klonopin 2mg x1 for tonight. Pt in agreement to schedule.
[2024-04-09] MEDS: EFFEXOR PO (19:54)
[2024-04-09] MEDS: ELAVIL 50 MG PO (23:32)
[2024-04-09] MEDS: KLONOPIN 2 MG PO (23:58)
[2024-04-10] VITALS (10 sets, daily range): BP systolic 15–145; BP diastolic 45–84; BMI 21.5
[2024-04-10] MEDS: NSS 1000 IV ×2 (04:09→16:25)
[2024-04-10] MEDS: CARAFATE SUSPENSION PO ×2 (08:12→12:54)
[2024-04-10] MEDS: COLACE PO (08:12)
[2024-04-10] MEDS: MIRALAX PO (08:12)
[2024-04-10] MEDS: EFFEXOR PO (08:13)
[2024-04-10] MEDS: NSS (PRESERVATIVE FREE) 10 ML IV (08:13)
[2024-04-10] MEDS: PROTONIX IV 40 MG IV (08:14)
[2024-04-10 08:23] LABS: Hematocrit 31.3 % (37.0-47.0); Mean Corp Hgb Conc. 31.9 g/dL (33.0-37.0); Mean Corpuscular Hgb 29.7 pg (27.0-31.0); Mean Corpuscular Volume 92.9 fL (81.0-99.0); Mean Platelet Volume 10.4 fL (7.4-10.4); Platelet Count 265 10^3/uL (130-400); Red Blood Cell Count 3.37 10^6/uL (4.20-5.40); Red Cell Dist. Width 17.8 % (11.5-14.5); White Blood Cell Count 4.5 10^3/uL (4.8-10.8)
[2024-04-10 08:52] LABS: ALT (SGPT) < 10 U/L (0-35); AST (SGOT) 15 U/L (14-36); Albumin 2.8 g/dl (3.5-5.0); Alkaline Phosphatase 87 U/L (38-126); Blood Urea Nitrogen 12 mg/dl (7-17); Calcium 8.9 mg/dl (8.4-10.2); Carbon Dioxide 25 mmol/L (22-30); Chloride 108 mmol/L (98-107); Estimated Creatinine Clearance 61 ml/min; Glucose 80 mg/dl (70-99); Iron 42 ug/dl (37-170); Potassium 3.9 mmol/L (3.5-5.1); Sodium 138 mmol/L (135-145); Total Bilirubin 0.3 mg/dl (0.2-1.3); Total Protein 5.5 g/dl (6.3-8.2); eGFR > 60.00
[2024-04-10 09:08] LABS: Percent Saturation 20 % (20-50); Total Iron Binding Capacity 204 ug/dl (265-497)
[2024-04-10 09:26] LABS: Ferritin 39.9 ng/ml (11.1-264.0)
[2024-04-10 09:58] LABS: Folate 3.3 ng/ml (2.76-20); Vitamin B12 839 pg/ml (239-931)
--- NOTE | 2024-04-10 13:23 | PTCARENOTE ---
pt back from GI lab s/p EGD. pt is AAO*3, room air. pt is in chair. alarm in. call steiner within the reach. pt is on full liquid diet. pt aware. plan of care ongoing.
[2024-04-10] MEDS: DILAUDID 0.5 MG IV (14:40)
[2024-04-10] MEDS: CARAFATE SUSPENSION 1 GM PO ×2 (16:23→21:30)
--- NOTE | 2024-04-10 16:30 | CM ---
CM reviewed chart and met with patient s/p endo this morning. IA completed.
Bernadette lives with her in a 1st floor condo with 1 entry step. She reports being (I) amb and ADLs, although she does have 2 walkers and a SPC in case she feels she needs to use something.
Pt has no previous VN/SNF hx however does have 2 wakers and a spc for use as needed
[facility]
PCP: Dr. Sheldon Condon
CM will continue to monitor patient's progress and assist with needs once identified
--- NOTE | 2024-04-10 17:43 | W.PN.HOSP.TC ---
Addendum entered and electronically signed by Teresa Nur MD 04/10/24 18:42:
I saw and evaluated the patient independently. I reviewed the resident�s note and agree with findings and plan as documented by Dr. Peoples.
GENERAL: well developed, well nourished, female in no apparent distress
HEENT:NC AT--no O2 requirements
HEART: regular rate and rhythm, +S1, +S2
LUNGS : clear to auscultation bilaterally
ABDOM: soft, nontender, nondistended, + bowel sounds
EXT: no cyanosis, clubbing, or edema
NEUROLOGIC: grossly intact
Acute Gastritis--History of G-J Anastomosis Ulceration--apprec GI--EGD with marginal ulcer and stenosis which was dilated-- PPI BID/carafate QID--if tolerates solid food, can d/c in AM
Chronic Constipation--Patient reports no BM in the past 5 days- Stool-filled colon appreciated on CT- Miralax BID for now and follow for results.
Abnormal UA- Patient with abnormal UA, but no current UTI symptoms- UA appears most consistent with contamination given > 30 squamous cells--urine culture with mixed antoinette (gm neg bacilli and gm positive cocci)--consider abx
Agoraphobia - Stable. Continue venlafaxine, amitriptyline- Changed clonazepam to PRN dosing--pt and demanded taking meds at outpt dosing--pt not amenable to hearing about tapering med--will defer to outpt provider
Weight Loss- Patient has lost 27kg over the past year--TSH WNL--consider further workup
anemia--check usual studies
DVT Prophylaxis: SCDs
Code Status: Full
OF NOTE, pt does NOT want us talking to her daughter
Original Note:
Today's Communication/Plan
-
Met with patient to discuss her Gastro-esophageal Reflux Disease with Esophagitis. Discussing treatment plans. Discussed potential alterations of her PRN clonazepam due to fall risk.
Assessment / Plan
Assessment / Plan
Patient is an 83 year old female
* Gastro-esophageal Reflux Disease with Esophagitis, without bleeding:
- History of G-J Anastomosis Ulceration. Continue clear fluids. Continue Protonix BID. Evidence for gastritis noted on CT scan - similar to prior admission of one year ago--possible complication post Endoscopic Sleeve Gastroplasty. Patient
underwent an upper GI endoscopy with an impression of LA Grade C reflux esophagitis with no bleeding. 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
Gastroenterology recommends that the patient remain on a full liquid diet continue to remain on Protonix 40 mg oral twice daily and use sucralfate suspension 1 g PO 4 times daily.
* Epigastric Pain:
-Remain on Protonix 40 mg oral twice daily.
* Chronic Constipation:
- Patient reports no BM in the past 5 days- Stool-filled colon appreciated on CT- Miralax BID for now and follow for results.
* Abnormal UA:
- No current UTI symptoms- UA appears most consistent with contamination given > 30 squamous cells. Consider abx for gram negative bacilli.
* Agoraphobia:
- Stable. Continuing venlafaxine, amitriptyline- Clonazepam is PRN. Considering reduction of clonazepam dosage due to fall risk.
* Weight Loss:
- Patient has lost 27kg over the past year--TSH remains WNL--consider further workup
* Anemia:
-Patient continues to suffer from mild pancytopenia. WBC is at 4.5 and RBCs at 3.37 and hemoglobin at 10 and hematocrit at 31.3. TIBC is at 204 while iron is at 42 indicating possible iron deficiency anemia. Will continue to follow.
*Fall Risk with Hx of falls at home:
-The patient currently is on 2 mg of clonazepam at night and 1 mg of clonazepam in the morning. Clonazepam increases the risk of falls and it would be avilez to open up a discussion with her primary care provider in regards to possibly tapering her
down to a more safe and efficacious dose. The patient was also difficult to arouse and relieve this morning which may also be a consequence of her clonazepam dosage.
* DVT Prophylaxis: Sequential compression device
Code Status: Full
Anticipated Discharge: > 48 hours
Subjective/Interval History
-
Date of Service: April 10, 2024
Patient continues to feel better and is stable. Overnight she had complaints of not receiving her clonazepam 2 mg over the evening. Upon receiving her medication she was calm and cooperative and slept soundly through the night. She was slightly
difficult to arouse early this morning but was seen sitting in her bed eating in the late morning.
Objective Data
-
Labs:
Laboratory Results
04/10/24
07:30
WBC 4.5 L
Hgb 10.0 L
Hct 31.3 L
Plt Count 265
Sodium 138
Potassium 3.9
Chloride 108 H
Carbon Dioxide 25
BUN 12
Creatinine 0.6
Glucose 80
Calcium 8.9
Total Bilirubin 0.3
AST 15
ALT < 10
Alkaline Phosphatase 87
Vital Signs:
Vital Signs
Temp Pulse Resp BP Pulse Ox
97.3 F 84 18 103/66 96
04/10/24 15:32 04/10/24 15:32 04/10/24 15:32 04/10/24 15:32 04/10/24 15:32
I&O
04/09/24 04/10/24 04/11/24
06:59 06:59 06:59
Intake Total 0 / 0 600 / 600
Balance 0 / 0 600 / 600
Physical Exam
-
General: No Apparent Distress
Neuro: Awake, Alert and Oriented
Psych: Calm
[2024-04-10] MEDS: EFFEXOR 150 MG PO (21:29)
[2024-04-10] MEDS: KLONOPIN 2 MG PO (21:29)
[2024-04-10] MEDS: PROTONIX 40 MG PO (21:29)
[2024-04-10] MEDS: ELAVIL 50 MG PO (21:30)
[2024-04-10] MEDS: MIRALAX 17 GRAMS PO (21:30)
[2024-04-10] MEDS: COLACE 100 MG PO (21:30)
[2024-04-11] VITALS (7 sets, daily range): BP systolic 93–135; BP diastolic 54–75
[2024-04-11] MEDS: NSS 1000 IV (04:06)
[2024-04-11 06:52] LABS: Hematocrit 32.4 % (37.0-47.0); Mean Corp Hgb Conc. 30.9 g/dL (33.0-37.0); Mean Corpuscular Hgb 29.4 pg (27.0-31.0); Mean Corpuscular Volume 95.3 fL (81.0-99.0); Mean Platelet Volume 9.8 fL (7.4-10.4); Platelet Count 238 10^3/uL (130-400); Red Cell Dist. Width 17.2 % (11.5-14.5); White Blood Cell Count 4.3 10^3/uL (4.8-10.8)
[2024-04-11 08:42] LABS: Blood Urea Nitrogen 7 mg/dl (7-17); Calcium 9.1 mg/dl (8.4-10.2); Carbon Dioxide 24 mmol/L (22-30); Chloride 111 mmol/L (98-107); Estimated Creatinine Clearance 61 ml/min; Glucose 80 mg/dl (70-99); Magnesium 1.9 mg/dl (1.6-2.3); Potassium 4.2 mmol/L (3.5-5.1); Sodium 139 mmol/L (135-145); eGFR > 60.00
[2024-04-11] MEDS: PROTONIX 40 MG PO ×2 (08:50→20:16)
[2024-04-11] MEDS: EFFEXOR 75 MG PO (08:50)
[2024-04-11] MEDS: COLACE 100 MG PO ×2 (08:50→20:16)
[2024-04-11] MEDS: MIRALAX 17 GRAMS PO ×2 (08:50→20:16)
[2024-04-11] MEDS: CARAFATE SUSPENSION 1 GM PO ×4 (08:50→21:26)
[2024-04-11] MEDS: DILAUDID 0.5 MG IV (11:01)
--- NOTE | 2024-04-11 11:26 | PTCARENOTE ---
Patient trialed on Low residue diet this am. Shortly after consumption patient complained of severe abdominal pain to upper quadrants. PRN Dilaudid administered. Resident made aware and patient placed on clear liquids.
--- NOTE | 2024-04-11 16:35 | W.PN.HOSP.TC ---
Addendum entered and electronically signed by Teresa Nur MD 04/11/24 17:31:
I saw and evaluated the patient independently. I reviewed the resident�s note and agree with findings and plan as documented by Dr. Peoples.
GENERAL: well developed, well nourished, female in no apparent distress
HEENT:NC AT--no O2 requirements
HEART: regular rate and rhythm, +S1, +S2
LUNGS : clear to auscultation bilaterally
ABDOM: soft, nontender, nondistended, + bowel sounds
EXT: no cyanosis, clubbing, or edema
NEUROLOGIC: grossly intact
Acute Gastritis--History of G-J Anastomosis Ulceration--apprec GI--EGD with marginal ulcer and stenosis which was dilated-- PPI BID/carafate QID--did not tolerate low residue diet so went back on clears
Chronic Constipation--Patient reports no BM in the past 5 days- Stool-filled colon appreciated on CT- Miralax BID for now and follow for results--await OBS series
Abnormal UA- Patient with abnormal UA, but no current UTI symptoms---urine culture with Klebsiella and Strep species--will start Rocephin despite > 30 squamous cells as same bacteria isolated 03/10/24 and looks as if no treatment was given...
Agoraphobia - Stable. Continue venlafaxine, amitriptyline- Changed clonazepam to PRN dosing--pt and demanded taking meds at outpt dosing--pt not amenable to hearing about tapering med--will defer to outpt provider
Weight Loss- Patient has lost 27kg over the past year--TSH WNL--consider further workup
anemia--check usual studies
DVT Prophylaxis: SCDs
Code Status: Full
OF NOTE, pt does NOT want us talking to her daughter
Updated by phone 04/11/24
Original Note:
Today's Communication/Plan
-
Patient failed trial low residue diet. Abdominal x-ray obstruction series ordered. Will continue to monitor the patient and reattempt solid foods after the patient's nausea is better controlled and after assessing the X-rays ordered.
Assessment / Plan
Assessment / Plan
Patient is an 83 year old female
* Gastro-esophageal Reflux Disease with Esophagitis, without bleeding:
- Patient failed a low residue diet trial. We will resume clear fluid diet
- Abdominal x-ray obstruction series ordered
- History of G-J Anastomosis Ulceration. Continuing clear fluids. Continuing Protonix BID. Evidence for gastritis noted on CT scan - similar to prior admission of one year ago--possible complication post Endoscopic Sleeve Gastroplasty. Patient
underwent an upper GI endoscopy with an impression of LA Grade C reflux esophagitis with no bleeding. 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
Gastroenterology recommended that the patient remain on a full liquid diet continue to remain on Protonix 40 mg oral twice daily and use sucralfate suspension 1 g PO 4 times daily.
* Epigastric Pain: Stable
-Remain on Protonix 40 mg oral twice daily.
* Chronic Constipation: Stable
- Patient reports no BM in the past 5 days- Stool-filled colon appreciated on CT- Miralax BID for now and follow for results.
* Abnormal UA: No Sypmtoms
- No current UTI symptoms- UA appears most consistent with contamination given > 30 squamous cells. Consider abx for gram negative bacilli.
* Agoraphobia: Stable
- Stable. Continuing venlafaxine, amitriptyline- Clonazepam is PRN. Considering reduction of clonazepam dosage due to fall risk.
* Weight Loss:
- Patient has lost 27kg over the past year--TSH remains WNL--consider further workup
* Anemia:
-Patient continues to suffer from mild pancytopenia. WBC is at 4.5 and RBCs at 3.37 and hemoglobin at 10 and hematocrit at 31.3. TIBC is at 204 while iron is at 42 indicating possible iron deficiency anemia. Will continue to follow.
*Fall Risk with Hx of falls at home:
-The patient currently is on 2 mg of clonazepam at night and 1 mg of clonazepam in the morning. Clonazepam increases the risk of falls and it would be avilez to open up a discussion with her primary care provider in regards to possibly tapering her
down to a more safe and efficacious dose.
* DVT Prophylaxis: Sequential compression device
Code Status: Full
Anticipated Discharge: 24 - 48 hours
Subjective/Interval History
-
Date of Service: April 11, 2024
Met with patient at the bedside. Patient was cooperative in discussion. She stated that she believes that she should not be discharged today and hopes this will be the case. She is hoping to have some 'real food' today.
Objective Data
-
Labs:
Laboratory Results
04/11/24
06:36
WBC 4.3 L
Hgb 10.0 L
Hct 32.4 L
Plt Count 238
Sodium 139
Potassium 4.2
Chloride 111 H
Carbon Dioxide 24
BUN 7
Creatinine 0.6
Glucose 80
Calcium 9.1
Vital Signs:
Vital Signs
Temp Pulse Resp BP Pulse Ox
98.7 F 73 18 93/54 98
04/11/24 15:42 04/11/24 15:42 04/11/24 15:42 04/11/24 15:42 04/11/24 15:42
I&O
04/10/24 04/11/24 04/12/24
06:59 06:59 06:59
Intake Total 600 / 600 1640 / 1640
Balance 600 / 600 1640 / 1640
Review of Systems
-
History Source: Patient
Constitutional: Reports No Symptoms
EENT: Reports No Symptoms Reported
Respiratory: Reports No Symptoms
Cardiac: Reports No Symptoms
Abdomen/GI: Reports No Symptoms
Breast: Reports No Symptoms
Physical Exam
-
General: Well Developed
HEENT: Normocephalic
Respiratory: Clear to Auscultation
Cardiac: Regular Rhythm
Breast: Deferred by me
GI: Soft, Nontender, Nondistended and Other (No Bowel Sounds)
Neuro: Nonfocal/Grossly Intact
Psych: Calm
[2024-04-11] MEDS: ROCEPHIN 1000 MG IV (18:12)
[2024-04-11] MEDS: STERILE WATER FOR INJECTION 10 ML IV (18:13)
[2024-04-11] MEDS: EFFEXOR 150 MG PO (21:25)
[2024-04-11] MEDS: KLONOPIN 2 MG PO (21:25)
[2024-04-11] MEDS: ELAVIL 50 MG PO (21:26)
[2024-04-12] VITALS (7 sets, daily range): BP systolic 90–117; BP diastolic 49–67
[2024-04-12] MEDS: MIRALAX 17 GRAMS PO ×2 (08:47→19:53)
[2024-04-12] MEDS: EFFEXOR 75 MG PO (08:47)
[2024-04-12] MEDS: CARAFATE SUSPENSION 1 GM PO ×4 (08:47→21:24)
[2024-04-12] MEDS: COLACE 100 MG PO ×2 (08:47→19:53)
[2024-04-12] MEDS: PROTONIX 40 MG PO ×2 (08:51→19:53)
--- NOTE | 2024-04-12 15:00 | CM ---
CM met with patient at bedside, patient does not want communication with daughter if she is not present. Per patient she plans to go home tomorrow. Patient is asking about a script for a scooter.
--- NOTE | 2024-04-12 15:10 | W.PN.HOSP.TC ---
Addendum entered and electronically signed by Teresa Nur MD 04/12/24 19:14:
I saw and evaluated the patient independently. I reviewed the resident�s note and agree with findings and plan as documented by Dr. Peoples.
GENERAL: well developed, well nourished, female in no apparent distress
HEENT:NC AT--no O2 requirements
HEART: regular rate and rhythm, +S1, +S2
LUNGS : clear to auscultation bilaterally
ABDOM: soft, nontender, nondistended, + bowel sounds
EXT: no cyanosis, clubbing, or edema
NEUROLOGIC: grossly intact
Acute Gastritis--History of G-J Anastomosis Ulceration--apprec GI--EGD with marginal ulcer and stenosis which was dilated-- PPI BID/carafate QID--did not tolerate low residue diet so went back on clears, tolerating clears, advance to fulls, if
tolerates that then back to low residue
Chronic Constipation--Patient reports no BM in the past 5 days- Stool-filled colon appreciated on CT- Miralax BID for now and follow for results-- OBS series without obstruction but positive for constipation and milk of molasses enema ordered
Abnormal UA- Patient with abnormal UA, but no current UTI symptoms---urine culture with Klebsiella and Strep species--will start Rocephin despite > 30 squamous cells as same bacteria isolated 03/10/24 and looks as if no treatment was given...
Agoraphobia - Stable. Continue venlafaxine, amitriptyline- Changed clonazepam to PRN dosing--pt and demanded taking meds at outpt dosing--pt not amenable to hearing about tapering med--restarted current outpt dosing--will defer to outpt
provider
Weight Loss- Patient has lost 27kg over the past year--TSH WNL--consider further workup
anemia--likely chronic disease, B12 adequate but folate low normal--will start repletion
DVT Prophylaxis: SCDs
Code Status: Full
OF NOTE, pt does NOT want us talking to her daughter
Updated and daughter Nai at bedside 04/12/24
Original Note:
Today's Communication/Plan
-
Patient failed low residue diet yesterday and was resumed on clear liquids. Plan to reattempt low residue diet tomorrow and if able to tolerate we will move forward with discharge planning. Patient also inquired about discharge medications in
regards to her ulcers, we reassured the patient that we would write a prescription for sucralfate and Protonix upon discharge. Patient also counseled and reassured about her constipation and is aware that she will be given an enema later on today.
Assessment / Plan
Assessment / Plan
Patient is an 83 year old female
* Gastro-esophageal Reflux Disease with Esophagitis, without bleeding:
- Patient currently on clear liquids - will reattempt Low Residue diet trial tomorrow. If unsuccessful we will consult GI.
- Abdominal x-ray obstruction series showed mild diffuse colonic and rectal distention with air and fecal matter suggesting constipation and a mild colonic ileus. No evidence for small bowel obstruction. Small hiatal hernia detected.
- History of G-J Anastomosis Ulceration. Continuing clear fluids. Continuing Protonix BID. Evidence for gastritis noted on CT scan - similar to prior admission of one year ago--possible complication post Endoscopic Sleeve Gastroplasty. Patient
underwent an upper GI endoscopy with an impression of LA Grade C reflux esophagitis with no bleeding. 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
Gastroenterology recommended that the patient remain on a full liquid diet continue to remain on Protonix 40 mg oral twice daily and use sucralfate suspension 1 g PO 4 times daily.
* Epigastric Pain: Stable
-Remain on Protonix 40 mg oral twice daily.
* Chronic Constipation: Stable
- Patient reports no BM. Milk and molasses enema ordered.
* Abnormal UA: No Sypmtoms
- CefTRIAXone 1000mg IV given following urine culture results showing sensitivity to Rocephin.
* Agoraphobia: Stable
- Stable. Continuing venlafaxine, amitriptyline- Clonazepam is PRN. Considering reduction of clonazepam dosage due to fall risk.
* Weight Loss:
- Patient has lost 27kg over the past year--TSH remains WNL--consider further workup
* Anemia:
-Patient continues to suffer from mild pancytopenia. Prior labs show WBC at 4.5 and RBCs at 3.37 and hemoglobin at 10 and hematocrit at 31.3. TIBC at 204 while iron is at 42 indicating possible iron deficiency anemia. CBC ordered for current
result. Will continue to follow.
*Fall Risk with Hx of falls at home:
-The patient currently is on 2 mg of clonazepam at night and 1 mg of clonazepam in the morning. Clonazepam increases the risk of falls and it would be avilez to open up a discussion with her primary care provider in regards to possibly tapering her
down to a more safe and efficacious dose.
* DVT Prophylaxis: Sequential compression device
Code Status: Full
Anticipated Discharge: 24 - 48 hours
Subjective/Interval History
-
Date of Service: April 12, 2024
Met with the patient at the bedside. She believes that she continues to do better each day. Unfortunately, she states that she is worried that she has had no bowel movement in a while. She also says that she has not passed gas. She would also
want to plan for her discharge even though she is unsure if she is ready to leave quite yet. She also shared an anecdotal story about how she had not had a bowel movement in over a month a year or so ago.
Objective Data
-
Vital Signs:
Vital Signs
Temp Pulse Resp BP Pulse Ox
98.1 F 90 16 117/64 99
04/12/24 14:36 04/12/24 14:36 04/12/24 14:36 04/12/24 14:36 04/12/24 14:36
I&O
04/11/24 04/12/24 04/13/24
06:59 06:59 06:59
Intake Total 1640 / 1640 1200 / 1200
Balance 1640 / 1640 1200 / 1200
Review of Systems
-
History Source: Patient
Constitutional: Reports No Symptoms
EENT: Reports No Symptoms Reported
Respiratory: Reports No Symptoms
Cardiac: Reports No Symptoms
Abdomen/GI: Reports Constipated and Other (Unable to pass gas)
Breast: Reports No Symptoms
Genitourinary: Reports No Symptoms
Musculoskeletal: Reports No Symptoms
Skin: Reports No Symptoms
Neuro: Reports No Symptoms
Endocrine: Reports No Symptoms
Hematologic / Lymphatic: Reports No Symptoms
Allergy / Immunology: Reports No Symptoms
Physical Exam
-
General: No Apparent Distress
HEENT: Normocephalic and Atraumatic
Respiratory: Clear to Auscultation
Cardiac: Regular Rhythm and S1/S2
Breast: Deferred by me
GI: Normal Bowel Sounds
Rectal: Deferred by Provider
Genito-urinary: Deferred by me
Musculoskeletal: No Clubbing, No Cyanosis and No Edema
Skin: Warm and Dry
Neuro: Nonfocal/Grossly Intact
Psych: Calm
[2024-04-12] MEDS: ROCEPHIN 1000 MG IV (16:10)
[2024-04-12] MEDS: STERILE WATER FOR INJECTION 10 ML IV (16:10)
--- NOTE | 2024-04-12 16:30 | PTCARENOTE ---
MOM enema given. Patient with small bm post enema.
[2024-04-12] MEDS: ELAVIL 50 MG PO (19:53)
[2024-04-12] MEDS: EFFEXOR 150 MG PO (19:53)
[2024-04-12] MEDS: KLONOPIN 2 MG PO (21:27)
[2024-04-13 03:30] VITALS: BP 105/67
[2024-04-13 07:06] VITALS: BP 98/55
[2024-04-13 07:13] LABS: Hematocrit 32.8 % (37.0-47.0); Hemoglobin 10.7 g/dL (12.0-16.0); Mean Corp Hgb Conc. 32.6 g/dL (33.0-37.0); Mean Corpuscular Hgb 30.1 pg (27.0-31.0); Mean Corpuscular Volume 92.1 fL (81.0-99.0); Mean Platelet Volume 9.8 fL (7.4-10.4); Platelet Count 288 10^3/uL (130-400); Red Blood Cell Count 3.56 10^6/uL (4.20-5.40); Red Cell Dist. Width 17.5 % (11.5-14.5); White Blood Cell Count 4.8 10^3/uL (4.8-10.8)
[2024-04-13 07:34] LABS: ALT (SGPT) 11 U/L (0-35); AST (SGOT) 20 U/L (14-36); Albumin 2.9 g/dl (3.5-5.0); Alkaline Phosphatase 103 U/L (38-126); Blood Urea Nitrogen 5 mg/dl (7-17); Calcium 9.2 mg/dl (8.4-10.2); Carbon Dioxide 28 mmol/L (22-30); Chloride 106 mmol/L (98-107); Estimated Creatinine Clearance 61 ml/min; Glucose 75 mg/dl (70-99); Potassium 4.1 mmol/L (3.5-5.1); Sodium 139 mmol/L (135-145); Total Bilirubin 0.3 mg/dl (0.2-1.3); Total Protein 5.6 g/dl (6.3-8.2); eGFR > 60.00
[2024-04-13 08:45] VITALS: BP 113/74
[2024-04-13] MEDS: CARAFATE SUSPENSION 1 GM PO ×2 (09:03→11:40)
[2024-04-13] MEDS: FOLVITE 1 MG PO (09:03)
[2024-04-13] MEDS: EFFEXOR 75 MG PO (09:03)
[2024-04-13] MEDS: COLACE 100 MG PO (09:03)
[2024-04-13] MEDS: MIRALAX 17 GRAMS PO (09:04)
[2024-04-13] MEDS: PROTONIX 40 MG PO (09:04)
[2024-04-13] MEDS: FLUSH (NSS) 1 FLUSH IV (09:04)
[2024-04-13 11:38] VITALS: BP 95/62
[2024-04-13 11:48] VITALS: BP 111/65
--- NOTE | 2024-04-13 11:48 | PTCARENOTE ---
Pt's most recent BP 95/62, asymptomatic. Rechecked BP and now 111/65, HR 80s.
--- NOTE | 2024-04-13 12:20 | PTCARENOTE ---
Pt tolerated low residue diet without any abdominal pain or N/V, Dr. Nur aware.
--- NOTE | 2024-04-13 12:58 | W.DCSUMMARY ---
Addendum entered and electronically signed by Teresa Nur MD 04/13/24 15:46:
Read, reviewed, and agree. See same day progress note for additional details. Time spent coordinating care, DC planning, review of DC plan of care with resident, transition of care, review of records in EMR, med rec, consults, notes, d/w
consultants, nursing, family, and CM = < 30 minutes.
In regards to patient's clonazepam use, lowered dosing in the hospital was attempted. Both patient and her demanded that the patient take her outpatient dosing. Despite multiple attempts at trying to explain the concern with this level of
clonazepam dosing in her age range, her outpatient medications were restarted at their insistence. It is recommended that the patient follow-up with her primary care physician and/your pain provider/psychiatrist/psychologist (whoever prescribes
this medication) for further discussion regarding tapering the medication.
Original Note:
Discharge Summary
Discharge Data
Date of Admission: 04/09/24
Date of Discharge: 04/13/24
-
Pending Results: No
Hospital Course
The patient is an 83-year-old woman with a history of diabetes, and Adalid-en-Y gastric bypass who resides at home with her . She also has a history of gastritis with intermittent nausea and vomiting who presents with upper abdominal pain,
intermittent nausea and vomiting that began 2 days prior to her presentation at the emergency department. In the emergency department the patient admitted that her upper abdominal pain is much worse with eating and drinking causing her to become
nauseated and vomit. Due to this pain she limited her oral intake and had lost weight around 11 kg. She had not had a bowel movement in over a week or two. She had chronic constipation. CT scan showed significant/increased inflammatory changes
at the gastrojejunal anastomotic site concerning for markedly inflamed anastomotic ulcer. There was moderate surrounding inflammatory fat stranding without discrete abscess nor free air. There was also associated moderate wall thickening of the
gastric pouch and bypassed stomach consistent with thickened gastritis. She was admitted to the hospital due to concerns for recurrent gastritis/gastric ulcer, gastric outlet obstruction, possible GI bleed, and dehydration/acute kidney injury.
Upon admission patient was started on an IV PPI and Carafate was started. She was on NPO status upon admission with IVF support. She was given MiraLAX twice daily for her constipation. Urine culture was conducted for her abnormal UA. DVT
prophylaxis was with sequential compression device. GI consult ordered an upper GI endoscopy which showed a LA grade C reflux esophagitis with no bleeding. A Adalid-en-Y gastrojejunostomy with gastrojejunal anastomosis characterized by ulceration
and mild stenosis that was dilated using a CRE balloon dilator. Following the endoscopy GI recommended that the patient be resumed on a full liquid diet and to use Protonix and sucralfate until the epigastric pain improved. Patient was kept on a
clear diet for multiple days and then trialed a low residue diet which unfortunately resulted in recurrent epigastric pain. The full residue diet was temporarily stopped and full clear diet was resumed again until pain resolved. Patient was again
restarted on full residue diet and it has been well tolerated.
The patient and her family have been counseled in regards to how to improve the patient's diet to avoid possible unfavorable outcomes and recurrent epigastric pain. Patient understands that they should try their best to have smaller meals with more
frequency instead of large infrequent meals. The patient has reached maximal benefit from this hospital admission and is appropriate for discharge.
Discharge Plan
-
Patient Disposition: Home (Routine Discharge)
Discharge Diagnosis/Procedures: Acute Gastritis, Chronic Constipation, Abnormal UA (Klebsiella and Strep UTI), Agorophobia, Wt Loss, Anemia of Chronic disease
Condition: Good
Diet: Low Residue
Activity: As tolerated
Driving Restrictions: As prior to admission
Bathing Restrictions: None
Referrals:
UNKNOWN - PT NOT,INTERVIEWE [Family Provider] - in less than 1 week
Prescriptions:
New
acetaminophen 325 mg Tablet
650 mg PO Q4HPRN PRN (Reason: Mild Pain / Temp > 101) Qty: 0 0RF
polyethylene glycol 3350 [HealthyLax] 17 gram Powder In Packet
17 g PO BID Qty: 0 0RF
sucralfate 100 mg/mL Suspension
1 g PO ACHS Qty: 414 0RF
pantoprazole 40 mg Tablet,Delayed Release (Dr/Ec)
40 mg PO BID Qty: 60 0RF
docusate sodium 100 mg Capsule
100 mg PO BID Qty: 0 0RF
folic acid 1 mg Tablet
1 mg PO DAILY Qty: 0 0RF
Continued
venlafaxine 75 mg Tablet
75 mg PO DAILY
venlafaxine 75 mg Tablet
150 mg PO HS
clonazepam 1 mg Tablet
1 mg PO DAILY
clonazepam 1 mg Tablet
2 mg PO HS
amitriptyline 50 mg Tablet
50 mg PO HS
perphenazine 4 mg Tablet
4 mg PO HS
ferrous sulfate 325 mg (65 mg iron) tablet
325 mg PO Q OTHER DAY Qty: 14 1RF
Discontinued
pantoprazole 40 mg Tablet,Delayed Release (Dr/Ec)
40 mg PO BID Qty: 60 1RF
polyethylene glycol 3350 [HealthyLax] 17 gram powder in packet
17 g PO BID PRN (Reason: as needed)
Discharge Orders:
Discharge Patient (As Directed); Ordered 04/13/24
Ordered By: Nico Peoples
Discharge Date and Time
Print Language: THAI
--- NOTE | 2024-04-13 13:27 | W.PN.HOSP.TC ---
Addendum entered and electronically signed by Teresa Nur MD 04/13/24 15:42:
I saw and evaluated the patient independently. I reviewed the resident�s note and agree with findings and plan as documented by Dr. Peoples.
GENERAL: well developed, well nourished, female in no apparent distress
HEENT:NC AT--no O2 requirements
HEART: regular rate and rhythm, +S1, +S2
LUNGS : clear to auscultation bilaterally
ABDOM: soft, nontender, nondistended, + bowel sounds
EXT: no cyanosis, clubbing, or edema
NEUROLOGIC: grossly intact
Acute Gastritis--History of G-J Anastomosis Ulceration--apprec GI--EGD with marginal ulcer and stenosis which was dilated-- PPI BID/carafate QID--did not tolerate low residue diet so went back on clears, tolerating clears,tolerated fulls, if
tolerates low residue, then d/c
Chronic Constipation--Patient reports no BM in the past 5 days- Stool-filled colon appreciated on CT- Miralax BID for now and follow for results-- OBS series without obstruction but positive for constipation s/p milk of molasses enema
Klebsiella/strep UTI--will start Rocephin despite > 30 squamous cells as same bacteria isolated 03/10/24 and looks as if no treatment was given...no need for continued ABX treatment at d/c
Agoraphobia - Stable. Continue venlafaxine, amitriptyline- Changed clonazepam to PRN dosing--pt and demanded taking meds at outpt dosing--pt not amenable to hearing about tapering med--restarted current outpt dosing--will defer to outpt
provider
Weight Loss- Patient has lost 27kg over the past year--TSH WNL--consider further workup
anemia--likely chronic disease, B12 adequate but folate low normal--will start repletion
DVT Prophylaxis: SCDs
Original Note:
Today's Communication/Plan
-
Patient will be trialed on a low residue diet today and if successful the patient will be discharged to home in the afternoon. If patient is unable to tolerate low residue diet we will consult GI again and move forward from there.
Assessment / Plan
Assessment / Plan
Patient is an 83 year old female
* Gastro-esophageal Reflux Disease with Esophagitis, without bleeding:
- Low Residue diet trial at lunch/afternoon. If well tolerated we will discharge the patient. If unsuccessful we will consult GI.
- Abdominal x-ray obstruction series showed mild diffuse colonic and rectal distention with air and fecal matter suggesting constipation and a mild colonic ileus. No evidence for small bowel obstruction. Small hiatal hernia detected.
- History of G-J Anastomosis Ulceration. Continuing clear fluids. Continuing Protonix BID. Evidence for gastritis noted on CT scan - similar to prior admission of one year ago--possible complication post Endoscopic Sleeve Gastroplasty. Patient
underwent an upper GI endoscopy with an impression of LA Grade C reflux esophagitis with no bleeding. 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
Gastroenterology recommended that the patient remain on a full liquid diet continue to remain on Protonix 40 mg oral twice daily and use sucralfate suspension 1 g PO 4 times daily.
* Epigastric Pain: Stable
-Remain on Protonix 40 mg oral twice daily.
* Chronic Constipation: Stable
- Patient reports no BM. Milk and molasses enema ordered.
* Abnormal UA: No Sypmtoms
- CefTRIAXone 1000mg IV given following urine culture results showing sensitivity to Rocephin.
* Agoraphobia: Stable
- Stable. Continuing venlafaxine, amitriptyline- Clonazepam is PRN. Considering reduction of clonazepam dosage due to fall risk.
* Weight Loss:
- Patient has lost 27kg over the past year--TSH remains WNL--consider further workup
* Anemia:
-Patient continues to suffer from mild pancytopenia. Prior labs show WBC at 4.5 and RBCs at 3.37 and hemoglobin at 10 and hematocrit at 31.3. TIBC at 204 while iron is at 42 indicating possible iron deficiency anemia. CBC ordered for current
result. Will continue to follow.
*Fall Risk with Hx of falls at home:
-The patient currently is on 2 mg of clonazepam at night and 1 mg of clonazepam in the morning. Clonazepam increases the risk of falls and it would be avilez to open up a discussion with her primary care provider in regards to possibly tapering her
down to a more safe and efficacious dose.
* DVT Prophylaxis: Sequential compression device
Code Status: Full
Anticipated Discharge: Within 24 hours
Subjective/Interval History
-
Date of Service: April 13, 2024
Met with patient at the bedside. Patient states that they feel much better and will forward to trying a low residue diet. Patient hopes that if they are able to tolerate this diet that they may be discharged today. She offers no physical
complaints and is in a pleasant mood.
Objective Data
-
Labs:
Laboratory Results
04/13/24
06:42
WBC 4.8
Hgb 10.7 L
Hct 32.8 L
Plt Count 288 D
Sodium 139
Potassium 4.1
Chloride 106
Carbon Dioxide 28
BUN 5 L
Creatinine 0.6
Glucose 75
Calcium 9.2
Total Bilirubin 0.3
AST 20
ALT 11
Alkaline Phosphatase 103
Vital Signs:
Vital Signs
Temp Pulse Resp BP Pulse Ox
97.7 F 86 18 111/65 99
04/13/24 11:38 04/13/24 11:48 04/13/24 11:38 04/13/24 11:48 04/13/24 11:38
I&O
04/12/24 04/13/24 04/14/24
06:59 06:59 06:59
Intake Total 1200 / 1200 720 / 720 360 / 360
Balance 1200 / 1200 720 / 720 360 / 360
Review of Systems
-
History Source: Patient
Constitutional: Reports No Symptoms
EENT: Reports No Symptoms Reported
Respiratory: Reports No Symptoms
Cardiac: Reports No Symptoms
Abdomen/GI: Reports No Symptoms
Breast: Reports No Symptoms
Genitourinary: Reports No Symptoms
Musculoskeletal: Reports No Symptoms
Skin: Reports No Symptoms
Neuro: Reports No Symptoms
Endocrine: Reports No Symptoms
Hematologic / Lymphatic: Reports No Symptoms
Allergy / Immunology: Reports No Symptoms
Physical Exam
-
General: No Apparent Distress
HEENT: Normocephalic, Atraumatic and Moist Mucous Membranes
Respiratory: Clear to Auscultation
Cardiac: Regular Rhythm and S1/S2
Breast: Deferred by me
GI: Soft, Nontender, Nondistended and Normal Bowel Sounds
Rectal: Deferred by Provider
Musculoskeletal: No Clubbing, No Cyanosis and No Edema
Skin: Warm
Neuro: Nonfocal/Grossly Intact
Psych: Calm
== END 2024-04-13 13:22 | disposition home or self-care (01) | DRG 381 ==
LOC: 4 EAST ACU 03:00
PROVIDERS: Student in an Organized Health Care Education/Training Program; ADMITTING PHYSICIAN Hospitalist; ATTENDING PHYSICIAN Internal Medicine; CONSULT PHYSICIAN Internal Medicine Gastroenterology; EMERGENCY PHYSICIAN Emergency Medicine
PROC: 0D7A8ZZ Dilation of Jejunum, Via Natural or Artificial Opening Endoscopic (ICD-10-PCS; 2024-04-10)
PROC: 0D768ZZ Dilation of Stomach, Via Natural or Artificial Opening Endoscopic (ICD-10-PCS; 2024-04-10)
DX: K28.9 Gastrojejunal ulcer, unspecified as acute or chronic, without hemorrhage or perforation (principal); D61.818 Other pancytopenia; K95.89 Other complications of other bariatric procedure; N39.0 Urinary tract infection, site not specified; K29.00 Acute gastritis without bleeding; K29.50 Unspecified chronic gastritis without bleeding; K21.00 Gastro-esophageal reflux disease with esophagitis, without bleeding; F41.9 Anxiety disorder, unspecified; D50.9 Iron deficiency anemia, unspecified; D63.8 Anemia in other chronic diseases classified elsewhere; F40.00 Agoraphobia, unspecified; K59.09 Other constipation; E11.9 Type 2 diabetes mellitus without complications; Z79.899 Other long term (current) drug therapy; Z98.84 Bariatric surgery status; Z91.81 History of falling; R63.4 Abnormal weight loss; Z68.20 Body mass index [BMI] 20.0-20.9, adult; Y83.8 Other surgical procedures as the cause of abnormal reaction of the patient, or of later complication, without mention of misadventure at the time of the procedure; B96.89 Other specified bacterial agents as the cause of diseases classified elsewhere
CPT/HCPCS: 74022; 74177; 80048; 80053; 81003; 81015; 82607; 82728; 82746; 83540; 83550; 83690; 83735; 84443; 84484; 85025; 85027; 87077; 87086; 87186; 93005; 96374; 96375; 99285; C1726; Q9967

== ENCOUNTER 2024-08-02 17:47 | Emergency (ER) | payer MEDICARE, OTHER, SELFPAY ==
[2024-08-02 17:53] VITALS: BP 109/67
[2024-08-02] MEDS: MOTRIN 400 MG PO (19:23)
[2024-08-02] MEDS: DECADRON 10 MG PO (19:24)
--- NOTE | 2024-08-02 19:44 | ED.GENMED ---
History of Present Illness
General
Chief Complaint: Musculo-Skeletal Complaint
Source: patient
Exam Limitations: none
Time Seen by Provider: 08/02/24 18:37
Nursing documentation reviewed up to this point in time: agreed with
History of Present Illness
History of Present Illness:
Patient presents to ED secondary to persistent left-sided neck pain, after waking up from sleep 3 days ago. Since then, pain has been persistent. Denies loss of sensation or weakness. Denies difficulty with ambulation. Denies headache. Denies
direct trauma. Denies previous history of similar symptoms. Patient spoke with her primary care physician who prescribed Flexeril yesterday, which she has taken without improvement in symptoms.
Past History
Past History
ED Past Medical History: NIDDM and Other (Chronic back pain)
ED Past Surgical History: Cholecystectomy and Gynecological (Tubal )
Social History
Tobacco: Non-smoker
Alcohol: None
Personal:
Living: with family
Review of Systems
Review of Systems
Allergies reviewed?: Yes
All Other Systems: ROS reviewed and negative except as documented in HPI and ROS
Constitutional: Reports no symptoms
EENT: Reports no symptoms
Musculoskeletal: Reports neck pain and other
Skin: Reports no symptoms
Neurological: Reports no symptoms
Phy Exam
Physical Exam
Physical Exam:
Physical Exam
General: mild painful distress, not acutely ill. afebrile
Head: nc/at. eomi
Neck: supple. normal posterior pharynx. diffuse cervical tenderness to palpation. cervical lymph nodes nontender to palpation.
Neuro: alert and oriented. no focal neurological deficits
Skin: no rash
Psychiatric: well kept. interactive and cooperative
Extremities: no edema. no calf tenderness.
Course
Orders/Labs/Results
Orders:
Orders
08/02/24 19:18
Dexamethasone Pf [Decadron] 10 mg PO NOW STA
Ibuprofen [Motrin] 400 mg PO NOW STA
CR Cervical Spine 4 Or 5 Vw Urgent
Comment:
Reason For Exam: neck pain
Vital Signs
Initial and Last Documented VS:
Initial Vital Signs
Temp Pulse Resp BP Pulse Ox
97.4 F 85 20 109/67 95
08/02/24 17:53 08/02/24 17:53 08/02/24 17:53 08/02/24 17:53 08/02/24 17:53
Last Documented Vital Signs
Temp Pulse Resp BP Pulse Ox
97.4 F 85 20 109/67 95
08/02/24 17:53 08/02/24 17:53 08/02/24 17:53 08/02/24 17:53 08/02/24 17:53
MDM/Problems Addressed
MDM/Problems Addressed:
History, exam, and x-ray consistent with likely neck pain secondary to underlying arthritis versus nerve impingement. Otherwise, patient is afebrile, hemodynamically stable, and neurologically intact. Patient will be treated conservatively with
recommendation to apply warm compress along with NSAIDs, as well as PCP follow-up as an outpatient, for potential MRI cervical spine, if her symptoms persist.
*Critical Care Note
Total Time (30-74mins, 75-104mins- exclusive of procedures): Not Applicable
ED Attending Note
-
Portions of this chart may have been created with voice recognition software.� Occasional wrong word or��sound alike� substitutions may have occurred due to the inherent limitations of voice recognition software.
Discharge Plan
Departure
Patient Disposition: Home (Routine Discharge)
Date of Disposition: 08/02/24
Time of Disposition: 20:57
Patient with high blood pressure during this ER visit?: No
Discharge Problem:
Neck pain
Instructions: Neck Pain ED
Prescriptions:
No Action
venlafaxine 75 mg Tablet
75 mg PO DAILY
venlafaxine 75 mg Tablet
150 mg PO HS
clonazepam 1 mg Tablet
1 mg PO DAILY
clonazepam 1 mg Tablet
2 mg PO HS
amitriptyline 50 mg Tablet
50 mg PO HS
perphenazine 4 mg Tablet
4 mg PO HS
ferrous sulfate 325 mg (65 mg iron) tablet
325 mg PO Q OTHER DAY Qty: 14 1RF
acetaminophen 325 mg Tablet
650 mg PO Q4HPRN PRN (Reason: Mild Pain / Temp > 101) Qty: 0 0RF
polyethylene glycol 3350 [HealthyLax] 17 gram Powder In Packet
17 g PO BID Qty: 0 0RF
pantoprazole 40 mg Tablet,Delayed Release (Dr/Ec)
40 mg PO BID Qty: 60 0RF
docusate sodium 100 mg Capsule
100 mg PO BID Qty: 0 0RF
folic acid 1 mg Tablet
1 mg PO DAILY Qty: 0 0RF
sucralfate [Carafate] 1 gram tablet
1 g PO ACHS Qty: 120 0RF
Referrals:
Sheldon Condon DO [Family Provider] -
Activity Restrictions/Additional Instructions:
As discussed, please follow-up with your primary care physician for reevaluation, including potential MRI of your cervical spine, if your symptoms persist. In the meantime, strongly recommend using NSAIDs, i.e. Motrin/Advil, along with warm
compress application.
Interventions
Interventions:
*Risk Screen - Suicide Last Done: 08/02/24 17:53
*General Assessment Last Done: 08/02/24 17:53
*Neglect/Abuse Screening Last Done: 08/02/24 17:53
*Nursing Disposition Last Done: 08/02/24 21:13
ED-Musculoskeletal Assessment Last Done: 08/02/24 19:07
Discharge Date and Time
Discharge Date/Time: 08/02/24 21:14
Print Language: GEORGIAN
== END 2024-08-02 21:14 | disposition home or self-care (01) ==
LOC: EMR 17:47
PROVIDERS: EMERGENCY PHYSICIAN Emergency Medicine; FAMILY PHYSICIAN Family Medicine
DX: M54.2 Cervicalgia (principal); E11.9 Type 2 diabetes mellitus without complications
CPT/HCPCS: 99283; 72050

== ENCOUNTER 2025-04-08 11:08 | Emergency (ER) | payer MEDICARE, OTHER, SELFPAY ==
[2025-04-08 11:11] VITALS: BP 120/74
--- NOTE | 2025-04-08 11:31 | ED.GENMED ---
History of Present Illness
General
Chief Complaint: Swelling
Source: patient and family
Exam Limitations: none
Time Seen by Provider: 04/08/25 11:21
History of Present Illness
History of Present Illness:
84yoF with a history of diet controlled diabetes, anemia, and anxiety presenting with her and caregiver for evaluation of left foot and lower leg redness. Patient stubbed her foot 4 days ago and has been having pain to the middle three toes
since. She started to notice swelling and redness to her foot and lower leg. She saw her visiting open hearth helper yesterday for a toenail clipping and she was told that she may be developing cellulitis and it was recommended that she go to the ED for
evaluation. Patient denies any fevers, chills, chest pain, shortness of breath.
Past History
Past History
ED Past Medical History: NIDDM and Other (Chronic back pain)
ED Past Surgical History: Cholecystectomy and Gynecological (Tubal )
Social History
Tobacco: Non-smoker
Alcohol: None
Personal:
Living: with family
Phy Exam
General Physical Exam
General Presentation: well appearing and no apparent distress
General Skin: warm and dry
General Habitus: normal
General Mental: alert
ENT Exam
ENT Exam: normocephalic
Pulmonary Exam
Pulmonary Exam: no respiratory distress
Neurological Exam
Neurological Exam: alert
Chauncey Coma Scale
Eye Opening: Spontaneous
Verbal Response: Oriented
Motor Response: Obeys Commands
GCS Total Score: 15
Musculoskeletal Exam
Musculoskeletal Exam: other (Faint erythema with warmth to the dorsum of the L foot and L lower anterior leg. +Tenderness to 2nd-4th toes. 1-2+ pitting edema to extremity. No deformity or wounds. 2+ DP pulse. ROM of ankle intact.)
Skin Exam
Skin Exam: warm/dry
Psychiatric Exam
Psychiatric Exam: normal mood/affect
Scores
Heart Failure Risk
Heart Failure Risk Score: Not Applicable
Course
Orders/Labs/Results
Orders:
Orders
04/08/25 11:30
CR Ankle - Left Min 3 Views Urgent
Comment:
Reason For Exam: injury
CR Foot - Left Min 3 Views Urgent
Comment:
Reason For Exam: injury
Venous Doppler Lwr Ext Left [US Periph Venous LOWER Ext LT] Urgent
Comment:
Reason For Exam: L calf swelling
04/08/25 11:45
Complete Blood Count/With Diff Urgent
Comprehensive Metabolic Panel Urgent
04/08/25 13:42
Gabriel Wrap Left-Treatment ONCE
Abnormal Lab Results
04/08/25
11:45
RBC 3.66 L 10^6/uL
(4.20-5.40)
Hgb 8.6 L g/dL
(12.0-16.0)
Hct 28.8 L %
(37.0-47.0)
MCV 78.7 L fL
(81.0-99.0)
MCH 23.5 L pg
(27.0-31.0)
MCHC 29.9 L g/dL
(33.0-37.0)
RDW 17.7 H %
(11.5-14.5)
Chloride 111 H mmol/L
(98-107)
Glucose 100 H mg/dl
(70-99)
04/08/25 11:45
04/08/25 11:45
Vital Signs
Initial and Last Documented VS:
Initial Vital Signs
Temp Pulse Resp BP Pulse Ox
98.1 F 99 20 120/74 95
04/08/25 11:11 04/08/25 11:11 04/08/25 11:11 04/08/25 11:11 04/08/25 11:11
Last Documented Vital Signs
Temp Pulse Resp BP Pulse Ox
98.1 F 99 20 147/82 97
04/08/25 11:11 04/08/25 11:11 04/08/25 11:11 04/08/25 13:00 04/08/25 13:15
MDM/Problems Addressed
Differential Diagnosis Includes:
84yoF here with L lower leg redness and swelling. Injury to L foot/toes 4 days ago. Visiting open hearth helper instructed patient to go to the ED for cellulitis. VSS. She is non-toxic appearing. There is erythema and edema to L foot/lower leg on exam. LLE
is neurovascularly intact. Differential diagnosis includes: fracture, cellulitis, less likely DVT
Initial ED plan: Check CBC, CMP, L foot/ankle x-rays, and venous duplex.
*Pulse Oximetry
SaO2: 95
Oxygen Mode of Delivery: Room air
Patient hypoxic: no (97%)
*Critical Care Note
Total Time (30-74mins, 75-104mins- exclusive of procedures): Not Applicable
Update Note
Update Note:
Venous duplex is negative for DVT. X-rays are negative for fracture. White count is normal. Hemoglobin is 8.6. Last hemoglobin about a year ago was 10.7. Upon further questioning, patient does report that her stools were dark for a few days
last week but her bowel movement yesterday appeared brown. Rectal exam performed and small amount of brown stool obtained which was Hemoccult negative. No indication for hospitalization. She was started on Keflex to cover for cellulitis. Advised
elevation, ice, and compression to help with swelling. Patient advised to follow-up closely with her PCP and have repeat blood work this week to monitor her hemoglobin levels. Strict ED return precautions reviewed. Patient and family in agreement
with plan and she was discharged in stable condition.
ED Attending Note
-
Portions of this chart may have been created with voice recognition software.� Occasional wrong word or��sound alike� substitutions may have occurred due to the inherent limitations of voice recognition software.
Discharge Plan
Departure
Patient Disposition: Home (Routine Discharge)
Date of Disposition: 04/08/25
Time of Disposition: 13:45
Patient with high blood pressure during this ER visit?: Yes
Discharge Problem:
Injury of left toe, Cellulitis of left lower extremity, Anemia
Instructions: Cellulitis (skin infection) in adults - ED discharge instructions
Prescriptions:
New
cephalexin 500 mg capsule
500 mg PO Q6H 7 Days Qty: 28 0RF
No Action
venlafaxine 75 mg Tablet
75 mg PO DAILY
venlafaxine 75 mg Tablet
150 mg PO HS
clonazepam 1 mg Tablet
1 mg PO DAILY
clonazepam 1 mg Tablet
2 mg PO HS
amitriptyline 50 mg Tablet
50 mg PO HS
perphenazine 4 mg Tablet
4 mg PO HS
ferrous sulfate 325 mg (65 mg iron) tablet
325 mg PO Q OTHER DAY Qty: 14 1RF
acetaminophen 325 mg Tablet
650 mg PO Q4HPRN PRN (Reason: Mild Pain / Temp > 101) Qty: 0 0RF
polyethylene glycol 3350 [HealthyLax] 17 gram Powder In Packet
17 g PO BID Qty: 0 0RF
pantoprazole 40 mg Tablet,Delayed Release (Dr/Ec)
40 mg PO BID Qty: 60 0RF
docusate sodium 100 mg Capsule
100 mg PO BID Qty: 0 0RF
folic acid 1 mg Tablet
1 mg PO DAILY Qty: 0 0RF
sucralfate [Carafate] 1 gram tablet
1 g PO ACHS Qty: 120 0RF
Referrals:
Sheldon Condon DO [Family Provider, Family Practice]
Activity Restrictions/Additional Instructions:
Take antibiotics as prescribed. Elevate your leg, compress, and apply ice to help with swelling.
Please call tomorrow to follow-up with your family doctor. You should have repeat blood work within 1 week to monitor your hemoglobin level.
Return to the ER with any worsening symptoms including weakness, dizziness, shortness of breath, or fevers.
Interventions
Interventions:
*Risk Screen - Suicide Last Done: 04/08/25 11:52
*General Assessment Last Done: 04/08/25 11:12
*Neglect/Abuse Screening Last Done: 04/08/25 11:52
*ED- Fall Risk Assessment Last Done: 04/08/25 11:52
*ED COVID-19 Vaccine History Last Done: 04/08/25 11:52
*Nursing Disposition Last Done: 04/08/25 14:03
ED- Cardiac Assessment Last Done: 04/08/25 11:52
ED- Pulmonary Assessment Last Done: 04/08/25 11:52
ED-Skin Assessment Last Done: 04/08/25 11:52
Discharge Date and Time
Discharge Date/Time: 04/08/25 14:04
Print Language: ZIMBABWEAN
[2025-04-08 11:55] LABS: % Basophils 0.7 % (0-2); % Eosinophils 5.1 % (0-6); % Immature Granulocytes 0.4 % (0-0.5); % Lymphocytes 24.3 % (20.5-51.1); % Monocytes 9.3 % (1.7-9.3); % Neutrophils 60.2 % (42.2-75.2); Absolute Eosinophils 0.3 10^3/uL (0-0.7); Absolute Lymphocytes 1.4 10^3/uL (1.2-3.4); Absolute Monocytes 0.5 10^3/uL (0.1-0.6); Absolute Neutrophils 3.4 10^3/uL (1.4-6.5); Hematocrit 28.8 % (37.0-47.0); Hemoglobin 8.6 g/dL (12.0-16.0); Mean Corp Hgb Conc. 29.9 g/dL (33.0-37.0); Mean Corpuscular Hgb 23.5 pg (27.0-31.0); Mean Corpuscular Volume 78.7 fL (81.0-99.0); Mean Platelet Volume 9.2 fL (7.4-10.4); Nucleated Red Blood Cells % 0 %; Platelet Count 250 10^3/uL (130-400); Red Blood Cell Count 3.66 10^6/uL (4.20-5.40); Red Cell Dist. Width 17.7 % (11.5-14.5); White Blood Cell Count 5.7 10^3/uL (4.8-10.8)
[2025-04-08 12:21] LABS: ALT (SGPT) 12 U/L (0-35); AST (SGOT) 20 U/L (14-36); Albumin 3.8 g/dl (3.5-5.0); Alkaline Phosphatase 121 U/L (38-126); Blood Urea Nitrogen 14 mg/dl (7-17); Calcium 9.3 mg/dl (8.4-10.2); Carbon Dioxide 23 mmol/L (22-30); Chloride 111 mmol/L (98-107); Glucose 100 mg/dl (70-99); Potassium 4.1 mmol/L (3.5-5.1); Sodium 141 mmol/L (135-145); Total Bilirubin 0.4 mg/dl (0.2-1.3); Total Protein 6.5 g/dl (6.3-8.2); eGFR > 60.00
[2025-04-08 12:28] VITALS: BP 157/87
[2025-04-08 13:00] VITALS: BP 147/82
== END 2025-04-08 14:04 | disposition home or self-care (01) ==
LOC: EMR 11:08
PROVIDERS: Physician Assistant; EMERGENCY PHYSICIAN Emergency Medicine; FAMILY PHYSICIAN Family Medicine
DX: S99.922A Unspecified injury of left foot, initial encounter (principal); L03.116 Cellulitis of left lower limb; X58.XXXA Exposure to other specified factors, initial encounter; R22.42 Localized swelling, mass and lump, left lower limb; D64.9 Anemia, unspecified; E11.9 Type 2 diabetes mellitus without complications; F41.9 Anxiety disorder, unspecified; Z90.49 Acquired absence of other specified parts of digestive tract
CPT/HCPCS: 99284; 73610; 73630; 80053; 85025; 93971

== ENCOUNTER 2025-07-06 17:24 | Emergency (ER) | payer MEDICARE, OTHER, SELFPAY ==
[2025-07-06 17:27] VITALS: BP 120/72
[2025-07-06 17:50] LABS: Hematocrit 33.5 % (37.0-47.0); Hemoglobin 9.9 g/dL (12.0-16.0); Mean Corp Hgb Conc. 29.6 g/dL (33.0-37.0); Mean Corpuscular Volume 78.1 fL (81.0-99.0); Nucleated Red Blood Cells % 0 %; Platelet Count 280 10^3/uL (130-400); Red Cell Dist. Width 19.5 % (11.5-14.5)
[2025-07-06 18:02] LABS: ALT (SGPT) 11 U/L (0-35); AST (SGOT) 19 U/L (14-36); Albumin 3.9 g/dl (3.5-5.0); Alkaline Phosphatase 151 U/L (38-126); Blood Urea Nitrogen 13 mg/dl (7-17); Calcium 9.4 mg/dl (8.4-10.2); Carbon Dioxide 22 mmol/L (22-30); Chloride 107 mmol/L (98-107); Glucose 106 mg/dl (70-99); Lipase 53 U/L (23-300); Potassium 4.2 mmol/L (3.5-5.1); Sodium 136 mmol/L (135-145); Total Protein 6.8 g/dl (6.3-8.2); eGFR > 60.00
--- NOTE | 2025-07-06 21:16 | ED.GENMED ---
History of Present Illness
General
Chief Complaint: Abdominal Symptoms
Source: patient
Exam Limitations: none
Time Seen by Provider: 07/06/25 20:58
History of Present Illness
History of Present Illness:
84-year-old female presents with epigastric pain. Started 2 days ago. Patient stopped her GI meds a month ago. She states she stopped them because she felt well. No nausea or vomiting bowel movements are normal no fever no chest pain shortness
of breath. No radiation of the back. No other complaints
Past History
Past History
ED Past Medical History: NIDDM and Other (Chronic back pain)
ED Past Surgical History: Cholecystectomy, Gynecological (Tubal ) and Orthopedic
Social History
Tobacco: Non-smoker
Alcohol: None
Personal:
Living: with family
Phy Exam
Physical Exam
Physical Exam:
GENERAL: Alert and oriented in no apparent distress
EYE: Orbits normal.
NECK: Supple
ENT: Mask in place
CARDIAC: Regular rate and rhythm without any obvious murmurs.
LUNGS: Clear breath sounds,normal
ABDOMEN: Soft, mild epigastric and mild left upper quadrant tenderness. No rebound or guarding no mass or hernia
NEUROLOGICAL: Alert and oriented , grossly non-focal
SKIN: Warm and dry, no rash or lesion, no discoloration, skin intact.
MUSCULOSKELETAL: No edema,no deformity.Good color
PSYCH: Normal and appropriate interaction.
Course
Orders/Labs/Results
Orders:
Orders
07/06/25 17:39
Complete Blood Count/With Diff Urgent
Comprehensive Metabolic Panel Urgent
Lipase Urgent
07/06/25 21:15
Iohexol [Omnipaque] See Protocol PO NOW STA
07/06/25 21:16
Pantoprazole [Protonix IV] 80 mg IV NOW STA
07/06/25 21:18
Troponin I Urgent
07/06/25 21:19
Electrocardiogram (*1) Stat
Reason for Study: Abdominal Pain
EKG- Treatment ONCE
07/06/25 21:34
Pantoprazole [Protonix] 40 mg PO NOW STA
Ribs, Right 3 View W/PA Chest [CR Ribs-right 3 Vw W/pa Chest*] Urgent
Comment:
Reason For Exam: trauma
Abnormal Lab Results
07/06/25
17:39
Hgb 9.9 L g/dL
(12.0-16.0)
Hct 33.5 L %
(37.0-47.0)
MCV 78.1 L fL
(81.0-99.0)
MCH 23.1 L pg
(27.0-31.0)
MCHC 29.6 L g/dL
(33.0-37.0)
RDW 19.5 H %
(11.5-14.5)
Glucose 106 H mg/dl
(70-99)
Alkaline Phosphatase 151 H U/L
(38-126)
07/06/25 17:39
07/06/25 17:39
Vital Signs
Initial and Last Documented VS:
Initial Vital Signs
Temp Pulse Resp BP Pulse Ox
98.0 F 90 16 120/72 98
07/06/25 17:27 07/06/25 17:27 07/06/25 17:27 07/06/25 17:27 07/06/25 17:27
Last Documented Vital Signs
Temp Pulse Resp BP Pulse Ox
98.0 F 90 16 142/78 98
07/06/25 17:27 07/06/25 17:27 07/06/25 17:27 07/06/25 22:35 07/06/25 21:18
MDM/Problems Addressed
Differential Diagnosis Includes:
Patient has had normal bowel movements. She has a nonsurgical abdomen. She is nontoxic. Likely this is all from her stopping her PPI 1 month ago. Labs are stable. Will check CT scan with oral and IV contrast because of her gastric bypass. If
this is stable she will be encouraged to restart her PPI and follow-up
*Radiology
Radiology exam reviewed: preliminary read by ED provider (Questionable infiltrate right base) and radiology read reviewed (Questionable subtle 6th and 7th rib fracture on the right)
*Pulse Oximetry
SaO2: 98
Oxygen Mode of Delivery: Room air
Patient hypoxic: no
*EKG
Interpreted by ED Provider?: Yes
Interpretation: normal
Comparison EKG: no changes
Heart Rate: 78
Rate: normal
Rhythm: sinus
Herrin: left axis deviation
Interval: normal interval
QRS Pattern: normal QRS
Ischemia: non-specific ST changes
*Critical Care Note
Total Time (30-74mins, 75-104mins- exclusive of procedures): Not Applicable
Data Reviewed
Review of Other/Old Records Reveals: Labs, Records, Radiology Studies and Testing
Update Note
Update Note:
Patient is clinically stable and nontoxic. She did not want to wait for the CAT scan. Very low suspicion for any acute surgical finding. However risk-benefit was explained to the patient. They are aware that we could be missing something acutely
surgical or life-threatening. We will start her PPI to follow-up
ED Attending Note
-
Portions of this chart may have been created with voice recognition software.� Occasional wrong word or��sound alike� substitutions may have occurred due to the inherent limitations of voice recognition software.
Discharge Plan
Departure
Patient Disposition: Home (Routine Discharge)
Date of Disposition: 07/06/25
Time of Disposition: 22:36
Patient with high blood pressure during this ER visit?: Yes
Discharge Problem:
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
Instructions: Rib fracture or bruised rib - ED (DC), Abdominal Pain, BLOOD PRESSURE
Prescriptions:
New
pantoprazole 40 mg tablet,delayed release (DR/EC)
40 mg PO BID 14 Days Qty: 28 0RF
sucralfate 100 mg/mL suspension
1 g PO ACHS 28 Days Qty: 1120 0RF
No Action
venlafaxine 75 mg Tablet
75 mg PO DAILY
venlafaxine 75 mg Tablet
150 mg PO HS
clonazepam 1 mg Tablet
1 mg PO DAILY
clonazepam 1 mg Tablet
2 mg PO HS
amitriptyline 50 mg Tablet
50 mg PO HS
perphenazine 4 mg Tablet
4 mg PO HS
ferrous sulfate 325 mg (65 mg iron) tablet
325 mg PO Q OTHER DAY Qty: 14 1RF
acetaminophen 325 mg Tablet
650 mg PO Q4HPRN PRN (Reason: Mild Pain / Temp > 101) Qty: 0 0RF
polyethylene glycol 3350 [HealthyLax] 17 gram Powder In Packet
17 g PO BID Qty: 0 0RF
pantoprazole 40 mg Tablet,Delayed Release (Dr/Ec)
40 mg PO BID Qty: 60 0RF
docusate sodium 100 mg Capsule
100 mg PO BID Qty: 0 0RF
folic acid 1 mg Tablet
1 mg PO DAILY Qty: 0 0RF
sucralfate [Carafate] 1 gram tablet
1 g PO ACHS Qty: 120 0RF
cephalexin 500 mg capsule
500 mg PO Q6H 7 Days Qty: 28 0RF
Referrals:
Sheldon Condon DO [Family Provider, Family Practice] - Follow up in 2-3 days
Activity Restrictions/Additional Instructions:
You need to restart your stomach medications. I sent both of them to your pharmacy
Light diet the next 2 days
Call your physician for close follow-up
If your pain progresses please return immediately for reevaluation and CAT scan
Interventions
Interventions:
*Risk Screen - Suicide Last Done: 07/06/25 17:27
*General Assessment Last Done: 07/06/25 21:50
*Neglect/Abuse Screening Last Done: 07/06/25 17:27
*ED- Fall Risk Assessment Last Done: 07/06/25 21:50
*ED COVID-19 Vaccine History Last Done: 07/06/25 21:50
OM-[id number]-Tsuzfrsrwv Assessment Last Done: 07/06/25 21:50
Discharge Date and Time
Print Language: SINHALA
[2025-07-06 21:20] VITALS: BP 148/86
[2025-07-06] MEDS: PROTONIX 40 MG PO (21:48)
[2025-07-06 22:18] LABS: Troponin I < 0.012 ng/ml
[2025-07-06 22:35] VITALS: BP 142/78
[2025-07-06 22:51] VITALS: BMI 31.1
[2025-07-06] MEDS: TYLENOL 650 MG PO (23:01)
== END 2025-07-06 23:19 | disposition home or self-care (01) ==
LOC: EMR 17:24
PROVIDERS: Emergency Medicine; EMERGENCY PHYSICIAN Emergency Medicine; FAMILY PHYSICIAN Family Medicine
DX: R10.13 Epigastric pain (principal); E11.9 Type 2 diabetes mellitus without complications; Z90.49 Acquired absence of other specified parts of digestive tract; Z87.19 Personal history of other diseases of the digestive system
CPT/HCPCS: 99284; 71101; 80053; 83690; 84484; 85025; 93005